=== PATIENT | male | born 1940 | race Caucasian/White ===

== ENCOUNTER 2017-11-30 23:03 | Inpatient (IN) ==
[2017-11-30] MEDS ORDERED: Ondansetron 4 MG/2 ML VIAL IVP ONE (23:16)
[2017-11-30] MEDS ORDERED: *HR* FentaNYL (PF) 100 MCG/2 ML VIAL IVP ONE (23:16)
[2017-11-30] MEDS ORDERED: 0.9 % Sodium Chloride 1,000 ML IVC ONE (23:16)
[2017-11-30 23:28] LABS: Bilirubin,Urine Negative (Negative); Blood,Urine Negative (Negative); Clarity,Urine Clear (Clear); Color,Urine Yellow (Yellow); Glucose,Urine (UA) >=1000 mg/dL (Normal); Ketones,Urine Negative (Negative); Leukocyte Esterase,Urine Negative (Negative); Nitrite,Urine Negative (Negative); Protein,Urine 100 mg/dL (Neg-Trace); Specific Gravity,Urine 1.019 (1.010-1.025); Urobilinogen,Urine Normal (Normal)
[2017-11-30 23:30] LABS: Bacteria,Urine None Seen per hpf (None-Few); Hyaline Casts,Urine None Seen per lpf (None-Few); RBC,Urine 0-3 per hpf (0-3); Squamous Epithelial Cell,Urine Moderate per lpf (None-Few); WBC,Urine 0-3 per hpf (0-3)
[2017-12-01 00:49] LABS: Basophils # 0.1 K/mcL (0.0-0.2); Basophils % 0.7 %; Eosinophils # 0.3 K/mcL (0.0-0.6); Eosinophils % 3.2 %; Hematocrit 45.1 % (37.5-50.1); Hemoglobin 14.6 g/dL (12.9-16.9); Immature Granulocytes % 0.5 % (0-4); Lymphocytes # 4.1 K/mcL (0.6-4.6); Lymphocytes % 38.2 %; Mean Corpuscular HGB Conc 32.4 g/dL (31.6-35.5); Mean Corpuscular Hemoglobin 28.2 pg (28.0-33.3); Mean Corpuscular Volume 87.2 fL (83.0-100.0); Mean Platelet Volume 10.1 fL (9.4-12.4); Monocytes % 9.1 %; Neutrophils # 5.2 K/mcL (1.6-8.9); Platelet Count 187 K/mcL (140-400); Red Blood Count 5.17 M/mcL (4.19-5.50); Red Cell Distribution Width 13.4 % (11.5-14.5); Segmented Neutrophils % 48.3 %
[2017-12-01 01:04] LABS: INR 1.1; Prothrombin Time 11.9 Seconds (9.4-12.1)
--- NOTE | 2017-12-01 01:04 | Emergency Department Note ---
Disposition Clinical Impression: Pancreatitis Qualifiers: Chronicity: acute Pancreatitis type: unspecified pancreatitis type Acute pancreatitis complication: no infection or necrosis Qualified Code(s): K85.90 - Acute pancreatitis without necrosis or infection, unspecified Disposition: Admitted As Inpatient Condition: Good Abdominal Pain HPI - General Chief Complaint: ED Abdominal Pain Stated Complaint: abd/back pain Time Seen by Provider: 11/30/17 23:16 Source: patient Mode of arrival: private vehicle Limitations: no limitations Nursing Notes Reviewed: Yes Vital Signs Reviewed: Yes - History of Present Illness HPI Narrative: 77-year-old male history of pancreatitis several times in the past presents to the ER with a chief complaint of abdominal pain. Patient reports pain around his epigastric area for the last 2 days. States that he feels like his prior pancreatitis. Reports pain goes into his back. So nauseated with a couple episodes of vomiting. No fevers or diarrhea. Reports normal bowel movements. He has a prior history of cholecystectomy, volvulus and appendectomy. No dysuria or hematuria. No other complaints. Pt Subjective Complaint: abdominal pain Onset (ago): day(s) Consistency: constant Location: epigastric Pain Severity: moderate Pain Scale: 7 Quality: stabbing Radiation: none Migration to: no migration Improves with: nothing Worsens with: nothing Context: history of similar episodes Associated symptoms: Reports: nausea, vomiting. Denies: diarrhea, fever, dysuria, hematuria Treatments prior to arrival: none - Related Data Home Medications Medication Instructions Recorded Confirmed Albuterol Sulfate [Albuterol 2 puff IH Q4HR PRN 09/30/15 08/12/16 Inhaler] Atenolol [Tenormin] 25 mg PO DAILY 09/30/15 08/12/16 Fluticasone Propionate [Flovent 1 puff IH BID 09/30/15 08/12/16 Hfa] GlipiZIDE XL (24 HR) [Glucotrol XL] 10 mg PO BID 09/30/15 08/12/16 Insulin DETEMIR [Levemir] 23 unit SQ BID 09/30/15 08/12/16 Lansoprazole [Prevacid] 30 mg PO BID 09/30/15 08/12/16 Losartan [Cozaar] 75 mg PO DAILY 09/30/15 08/12/16 Lovastatin [Mevacor] 80 mg PO DAILY 09/30/15 08/12/16 Tamsulosin [Flomax] 0.4 mg PO DAILY 09/30/15 08/12/16 Doxycycline 04/24/17 Previous Rx's Medication Instructions Recorded OxyCODONE/APAP 5/325 [Percocet 1 each PO Q6HR PRN #10 tablet 11/19/16 5/325] levoFLOXacin [Levaquin] 500 mg PO DAILY #10 tablet 04/24/17 predniSONE [PredniSONE] 0 mg PO DAILY #15 tablet 04/24/17 Allergies Allergy/AdvReac Type Severity Reaction Status Date / Time Erythromycin Base AdvReac Diarrhea Verified 11/30/17 23:11 lisinopril AdvReac Diarrhea Verified 11/30/17 23:11 meperidine [From Demerol] AdvReac Diarrhea Verified 11/30/17 23:11 metformin [From Glucophage] AdvReac Diarrhea Verified 11/30/17 23:11 teflan AdvReac Diarrhea Uncoded 04/24/17 16:29 zpack AdvReac Diarrhea Uncoded 04/24/17 16:29 All systems ED: reviewed and negative except as stated. Constitutional: Denies: fever Cardiovascular: Denies: chest pain Respiratory: Denies: dyspnea Gastrointestinal: Reports: abdominal pain, nausea, vomiting. Denies: diarrhea Genitourinary: Denies: dysuria, hematuria Abdominal Pain PMH - Past Medical History Medical history: Reports: hypertension, other Male Surgical History: Reports: appendectomy, cholecystectomy Psychiatric history: Reports: no psych history - Social History Smoking status: Never smoker Alcohol use: Reports: none Drug use: Reports: none Physical Exam - General Limitations: no limitations General appearance: alert, in no apparent distress - Head Head exam: atraumatic - Eye Eye exam: Present: normal appearance - ENT ENT exam: normal exam - Neck Neck exam: Present: normal inspection, full ROM - Chest Chest inspection: Present: normal inspection, symmetric chest wall rise - Respiratory Respiratory exam: Present: normal lung sounds bilaterally - Cardiovascular Cardiovascular exam: Present: regular rate, normal rhythm, normal heart sounds - Abdominal Exam Abdominal exam: Present: soft, tenderness (Moderate epigastric tenderness to palpation without distention or guarding.). Absent: distention, guarding - Extremities Exam Extremities exam: Present: normal inspection, full ROM - Expanded Upper Extremity Exam Shoulder exam: Present: normal inspection, full ROM Arm exam: Present: normal inspection, full ROM Elbow exam: Present: normal inspection, full ROM Forearm/Wrist exam: Present: normal inspection, full ROM Hand exam: Present: normal inspection, full ROM - Expanded Lower Extremity Exam Hip/Pelvis exam: Present: normal inspection, full ROM Upper leg exam: Present: normal inspection, full ROM Knee exam: Present: normal inspection, full ROM Lower leg exam: Present: normal inspection, full ROM Ankle exam: Present: normal inspection, full ROM Foot/toe exam: Present: normal inspection, full ROM - Skin Skin exam: Present: warm, dry Course Course Narrative: Patient seen and examined. We will get a CT scan of his abdomen and pelvis as well as labs and urinalysis. Patient given IV fluids, nausea meds and pain meds. - Reevaluation(s) Reevaluation #1: Discussed results of imaging labs with the patient. Reports his pain came back roughly 30 minutes after getting pain medication. We will order him another dose. He is agreeable with being admitted to the hospital. Vital Signs Temperature 97.4 F L 11/30/17 23:11 Pulse Rate 63 11/30/17 23:11 Respiratory Rate 20 11/30/17 23:11 Blood Pressure 203/80 11/30/17 23:11 O2 Sat by Pulse Oximetry 96 11/30/17 23:11 Temperature 97.4 F L 11/30/17 23:11 Pulse Rate 54 12/01/17 01:00 Respiratory Rate 16 12/01/17 02:52 Blood Pressure 201/88 12/01/17 02:52 O2 Sat by Pulse Oximetry 93 12/01/17 01:00 Oxygen Delivery Oxygen Delivery Room Air Abdominal Pain - [facility] Narrative Medical decision making narrative: 77-year-old male presents to the ER due to epigastric abdominal pain for 2 days. Prior history of pancreatitis of unknown etiology. His pain is focal epigastric here. CT scan with evidence of subtle acute pancreatitis of the pancreatic head. Lipase mildly elevated at 111. Noted to have stable chronic kidney disease. Patient given 2 doses of Advil, IV fluids and Zofran here. Admitted to the hospitalist service. - Lab Data Lab results reviewed: Yes I reviewed the patient's lab results. Result diagrams: 12/01/17 00:30 12/01/17 00:30 Lab Results 11/30/17 12/01/17 12/01/17 Range/Units 23:16 00:30 00:30 WBC 10.7 (4.3-11.1) K/mcL RBC 5.17 (4.19-5.50) M/mcL Hgb 14.6 (12.9-16.9) g/dL Hct 45.1 (37.5-50.1) % MCV 87.2 (83.0-100.0) fL MCH 28.2 (28.0-33.3) pg MCHC 32.4 (31.6-35.5) g/dL RDW 13.4 (11.5-14.5) % Plt Count 187 (140-400) K/mcL MPV 10.1 (9.4-12.4) fL Immature Gran % 0.5 (0-4) % Seg Neutrophils % 48.3 % Lymphocytes % 38.2 % Monocytes % 9.1 % Eosinophils % 3.2 % Basophils % 0.7 % Neutrophils # 5.2 (1.6-8.9) K/mcL Lymphocytes # 4.1 (0.6-4.6) K/mcL Monocytes # 1.0 (0.0-1.3) K/mcL Eosinophils # 0.3 (0.0-0.6) K/mcL Basophils # 0.1 (0.0-0.2) K/mcL PT (9.4-12.1) Seconds INR Sodium 135 L (136-145) mEq/L Potassium 4.6 (3.5-5.1) mEq/L Chloride 102 (98-107) mEq/L Carbon Dioxide 27 (23-29) mEq/L BUN 34 H (8-23) mg/dL Creatinine 2.19 H (0.70-1.30) mg/dL Est GFR ( Amer) 36 L (> 60) Est GFR (Non-Af Amer) 29 L (> 60) BUN/Creatinine Ratio 16 (6-26) Glucose 221 H (70-105) mg/dL Calculated Osmolality 294 (280-300) Calcium 9.2 (8.6-10.3) mg/dL Total Bilirubin 0.6 (0.3-1.0) mg/dL Direct Bilirubin 0.1 (0.0-0.2) mg/dL Indirect Bilirubin 0.5 (0.0-1.2) mg/dL AST 13 (13-39) Units/L ALT 14 (7-52) Units/L Alkaline Phosphatase 70 (34-104) Units/L Serum Total Protein 7.1 (6.4-8.9) g/dL Albumin 4.0 (3.5-5.7) g/dL Globulin 3.1 (2.4-3.5) g/dL Albumin/Globulin Ratio 1.3 (1.1-2.2) Lipase 111 H (11-82) Units/L Urine Color Yellow (Yellow) Urine Clarity Clear (Clear) Urine pH 6.0 (5.0-8.0) pH Units Ur Specific [place] 1.019 (1.010-1.025) Urine Protein 100 H (Neg-Trace) mg/dL Urine Glucose (UA) >=1000 H (Normal) mg/dL Urine Ketones Negative (Negative) mg/dL Urine Blood Negative (Negative) Urine Nitrite Negative (Negative) Urine Bilirubin Negative (Negative) Urine Urobilinogen Normal (Normal) mg/dL Ur Leukocyte Esterase Negative (Negative) Urine Microscopic RBC 0-3 (0-3) per hpf Urine Microscopic WBC 0-3 (0-3) per hpf Ur Squamous Epith Cells Moderate H (None-Few) per lpf Urine Bacteria None Seen (None-Few) per hpf Hyaline Casts None Seen (None-Few) per lpf Ur Culture Indicated? NO (NO) 12/01/17 Range/Units 00:30 WBC (4.3-11.1) K/mcL RBC (4.19-5.50) M/mcL Hgb (12.9-16.9) g/dL Hct (37.5-50.1) % MCV (83.0-100.0) fL MCH (28.0-33.3) pg MCHC (31.6-35.5) g/dL RDW (11.5-14.5) % Plt Count (140-400) K/mcL MPV (9.4-12.4) fL Immature Gran % (0-4) % Seg Neutrophils % % Lymphocytes % % Monocytes % % Eosinophils % % Basophils % % Neutrophils # (1.6-8.9) K/mcL Lymphocytes # (0.6-4.6) K/mcL Monocytes # (0.0-1.3) K/mcL Eosinophils # (0.0-0.6) K/mcL Basophils # (0.0-0.2) K/mcL PT 11.9 (9.4-12.1) Seconds INR 1.1 Sodium (136-145) mEq/L Potassium (3.5-5.1) mEq/L Chloride (98-107) mEq/L Carbon Dioxide (23-29) mEq/L BUN (8-23) mg/dL Creatinine (0.70-1.30) mg/dL Est GFR ( Amer) (> 60) Est GFR (Non-Af Amer) (> 60) BUN/Creatinine Ratio (6-26) Glucose (70-105) mg/dL Calculated Osmolality (280-300) Calcium (8.6-10.3) mg/dL Total Bilirubin (0.3-1.0) mg/dL Direct Bilirubin (0.0-0.2) mg/dL Indirect Bilirubin (0.0-1.2) mg/dL AST (13-39) Units/L ALT (7-52) Units/L Alkaline Phosphatase (34-104) Units/L Serum Total Protein (6.4-8.9) g/dL Albumin (3.5-5.7) g/dL Globulin (2.4-3.5) g/dL Albumin/Globulin Ratio (1.1-2.2) Lipase (11-82) Units/L Urine Color (Yellow) Urine Clarity (Clear) Urine pH (5.0-8.0) pH Units Ur Specific [place] (1.010-1.025) Urine Protein (Neg-Trace) mg/dL Urine Glucose (UA) (Normal) mg/dL Urine Ketones (Negative) mg/dL Urine Blood (Negative) Urine Nitrite (Negative) Urine Bilirubin (Negative) Urine Urobilinogen (Normal) mg/dL Ur Leukocyte Esterase (Negative) Urine Microscopic RBC (0-3) per hpf Urine Microscopic WBC (0-3) per hpf Ur Squamous Epith Cells (None-Few) per lpf Urine Bacteria (None-Few) per hpf Hyaline Casts (None-Few) per lpf Ur Culture Indicated? (NO) - Radiology Data Radiology results reviewed: Yes I reviewed the patient's radiology results. Abdomen/Pelvis CT 11/30/17 23:27 IMPRESSION: 1. Limited examination due to lack of IV contrast. 2. Subtle increase inflammation involving the pancreatic head may represent acute pancreatitis. 3. Otherwise no other acute findings. 4. No fluid collections. 5. Colonic diverticulosis, most in the descending sigmoid colon without evidence of diverticulitis. 6. Emphysema. 7. Prostatomegaly and nonspecific gallbladder wall thickening. D/ / Nito Gardner MD / Nito Gardner MD Interpreting Provider: Nito Gardner MD - EKG Data EKG attestation: Yes I reviewed and interpreted this EKG. EKG results narrative: EKG demonstrates sinus bradycardia with rate of 50 bpm. Left axis deviation. No long QRS duration of 137. Other vitals normal. Poor R wave progression. No gross ST elevations or depressions. No acute ischemic findings. No significant changes from previous EKG dated 09/06/16. S.B.A.R. - S.B.A.RSavi Situation: Demographics, MOA Background: Presenting Complaint, Relevant PMH, Meds, & Allergies Assessment: Course and respsone to treatment, Exam Concerns, Patient/Family Expectation, Pertinant Lab Results Recommendation: Barrier(s) to disposition, Recommendation based on pending studies, treatments, or consults S.B.A.R. Report Given to: Dr. Dejesus STrentAFlori Repor Time: 02:04 (Request EKG) Attestation Statement - Attestation Attestation: I, Zeb Velazquez MD, personally evaluated this patient and discussed their management with the resident physician. I reviewed the resident's note and agree with the documented findings, medical decision making, and plan of care. 77-year-old male presents to the emergency department with a complaint of epigastric abdominal pain for the past couple days. The pain radiates straight through to the back. Some nausea but no vomiting. Patient has a history of recurrent pancreatitis and states this feels the same. On examination patient is a well-developed well-nourished well-appearing elderly male in no acute distress. He is alert and oriented 3. There is no cyanosis or diaphoresis. Breath sounds are clear and equal bilaterally. Heart regular rate and rhythm. Abdomen is soft with normal bowel sounds. There is moderate midepigastric tenderness. Labs reviewed. The hospitalist, Dr. Dejesus, was consulted and accepted admission of the patient.
[2017-12-01 01:10] LABS: Albumin/Globulin Ratio 1.3 (1.1-2.2); Bilirubin,Direct 0.1 mg/dL (0.0-0.2); Bilirubin,Indirect 0.5 mg/dL (0.0-1.2); Bilirubin,Total 0.6 mg/dL (0.3-1.0); Calcium 9.2 mg/dL (8.6-10.3); Globulin 3.1 g/dL (2.4-3.5); Potassium 4.6 mEq/L (3.5-5.1); Total Protein 7.1 g/dL (6.4-8.9)
[2017-12-01] MEDS ORDERED: *HR* FentaNYL (PF) 100 MCG/2 ML VIAL IVP ONE (01:31)
[2017-12-01] MEDS ORDERED: *HR* HYDROcodone/Acet 7.5/325 mg TABLET PO ONE (02:29)
[2017-12-01] MEDS ORDERED: Dextrose Gel 15 GM/37.5 ML TUBE PO PRN ×4 (04:14→16:01)
[2017-12-01] MEDS ORDERED: D5% in Water 1,000 ML IVC PRN ×2 (04:14→16:01)
[2017-12-01] MEDS ORDERED: *HR* OxyCODONE Immed Rel 5 MG TABLET PO PRN (04:14)
[2017-12-01] MEDS ORDERED: Naloxone 0.4 MG/ML INJ IVP PRN (04:14)
[2017-12-01] MEDS ORDERED: *HR* Promethazine 25 MG/ML VIAL IVP PRN (04:14)
[2017-12-01] MEDS ORDERED: *HR* Dextrose 50 % in Water (Syg) 50 ML SYRINGE IVP PRN ×2 (04:14→16:01)
[2017-12-01] MEDS ORDERED: 0.9 % Sodium Chloride 1,000 ML IVC SCH ×2 (04:15→11:12)
--- NOTE | 2017-12-01 04:24 | Internal Med History&Physical ---
Date of Encounter: 12/01/17 Time of Encounter: 04:20 Assessment and Plan (1) Acute pancreatitis Current visit: No Status: Acute 1. Will keep npo, continue IVF, and treat with pain and nausea control. 2. Will order MRI of his abdomen/pancreas to evaluate CBD. 3. May need GI consult given his recurrent pancreatitis. Qualifiers: Pancreatitis type: idiopathic Qualified Code(s): K85.00 - Idiopathic acute pancreatitis without necrosis or infection (2) Acute kidney injury superimposed on chronic kidney disease Current visit: Yes Status: Acute 1. Will hydrate with IVF fluids and monitor renal functions. 2. Consult nephrology if worsening renal functions. (3) Diabetes mellitus Current visit: No Status: Chronic 1. Will continue SSI and add basal insulin later today. 2. Q6H glucose checks and SSI while npo. 3. Hold oral home meds. Qualifiers: Diabetes mellitus type: type 2 Diabetes mellitus complication status: with hyperglycemia Diabetes mellitus long term care phlebotomist insulin use: with fdc use Qualified Code(s): E11.65 - Type 2 diabetes mellitus with hyperglycemia; Z79.4 - longterm (current) use of insulin; Z79.4 - longterm (current) use of insulin ; Z79.4 - exterminator helper termite (current) use of insulin; Z79.4 - longterm (current) use of insulin (4) HTN (hypertension) Current visit: No Status: Chronic 1. Continue home meds as appropriate. 2. Monitor BP and adjust dosing as necessary. Qualifiers: Hypertension type: essential hypertension Qualified Code(s): I10 - Essential (primary) hypertension (5) DVT prophylaxis Current visit: Yes Status: Acute 1. Heparin SQ. Internal Medicine - H&P: HPI Chief complaint: abdominal pain Admitted From: Emergency Dept Plans for Post Hospital Care: Home History of present illness: Mr. Pickering is a 77 year old male who presents with a 2 to 3-day history of epigastric abdominal pain, nausea, and vomiting. He has had prior history of pancreatitis and was concerned that his symptoms were similar to his prior episodes of pancreatitis. Workup in the ER revealed slightly elevated lipase and CT scan findings concerning for pancreatitis. He was treated with some IV pain control and admitted to hospitalist. Upon my assessment of the patient, he still complains of significant epigastric pain. His nausea has subsided. He denies any diarrhea or fevers. Regarding his pancreatitis, he has had a prior cholecystectomy. He does not drink alcohol except for rare occasions -- roughly once or twice per year. His confirms the history. He denies any prior history of heavy alcohol consumption despite prior records documenting that. He states he would drink on occasions in the past, but more recently, he has had almost no alcohol intake due to his prior episodes of pancreatitis. He has not had any MRI or common bile duct imaging since his gallbladder surgery. Past Med Surg Social Fam HX - Past Medical History Attestation: Yes The following information was validated with the patient. Source: patient, old records reviewed, obtained from family Medical history: diabetes, hypertension Psychiatric history: no psych history - Past Surgical History Surgical History: appendectomy, cholecystectomy - Social History Smoking Status: Never smoker Smokeless Tobacco Status: No Alcohol use: none Drug use: none Current living situation: Home, With Family Activity Level: Independent ambulation, Very active - Family History Mother Hx Family Cancer: Yes (breast) - Additional Family History Additional family history: No FH pcnreatitis; + h/o gallstones Internal Medicine - H&P: Meds Albuterol Sulfate [Albuterol Inhaler] 2 puff IH Q4HR PRN 09/30/15 [History] Atenolol [Tenormin] 25 mg PO DAILY 09/30/15 [History] Fluticasone Propionate [Flovent Hfa] 1 puff IH BID 09/30/15 [History] GlipiZIDE XL (24 HR) [Glucotrol XL] 10 mg PO BID 09/30/15 [History] Insulin DETEMIR [Levemir] 23 unit SQ BID 09/30/15 [History] Lansoprazole [Prevacid] 30 mg PO BID 09/30/15 [History] Losartan [Cozaar] 75 mg PO DAILY 09/30/15 [History] Lovastatin [Mevacor] 80 mg PO DAILY 09/30/15 [History] Tamsulosin [Flomax] 0.4 mg PO DAILY 09/30/15 [History] OxyCODONE/APAP 5/325 [Percocet 5/325] 1 each PO Q6HR PRN #10 tablet 11/19/16 [Rx ] Doxycycline 04/24/17 [History] levoFLOXacin [Levaquin] 500 mg PO DAILY #10 tablet 04/24/17 [Rx] predniSONE [PredniSONE] 0 mg PO DAILY #15 tablet 04/24/17 [Rx] 3 Allergy/AdvReac Type Severity Reaction Status Date / Time Erythromycin Base AdvReac Diarrhea Verified 11/30/17 23:11 lisinopril AdvReac Diarrhea Verified 11/30/17 23:11 meperidine [From Demerol] AdvReac Diarrhea Verified 11/30/17 23:11 metformin [From Glucophage] AdvReac Diarrhea Verified 11/30/17 23:11 teflan AdvReac Diarrhea Uncoded 04/24/17 16:29 zpack AdvReac Diarrhea Uncoded 04/24/17 16:29 - Constitutional Constitutional: no chills, no fever(s) - EENT Eyes: no change in vision Ears: no ear pain, no tinnitus Nose, mouth and throat: no mouth pain, no nasal congestion, no sinus pressure, no sore throat - Cardiovascular Cardiovascular ROS IM: no chest pain, no dyspnea, no dyspnea on exertion, no edema, no palpitations - Respiratory Respiratory: no cough, no hemoptysis, no chest congestion, no excessive phlegm production - Gastrointestinal Gastrointestinal: abdominal pain, dyspepsia, nausea, vomiting, no diarrhea, no hematemesis, no hematochezia, no melena - Genitourinary Genitourinary ROS male: no dysuria, no flank pain - Musculoskeletal Musculoskeletal ROS IM: no arthralgias, no back pain - Integumentary Integumentary IM: no rash, no jaundice - Neurological Neurological ROS: no dizziness, no focal weakness, no frequent falls, no headache(s) - Psychiatric Psychiatric: no anxiety, no depression - Endocrine Endocrine IM: no polydipsia, no polyuria - Hematologic/Lymphatic Hematologic/Lymphatic: no easy bruising, no lymphadenopathy - Allergic/Immunologic Allergic/Immunologic: GI upset with certain foods, no wheezing - Constitutional Vitals: Temp Pulse Resp BP Pulse Ox 97.4 F L 54 16 201/88 93 11/30/17 23:11 12/01/17 01:00 12/01/17 02:52 12/01/17 02:52 12/01/17 01:00 General appearance: Present: cooperative, A&O X 3, pleasant, no acute distress, answers questions appropriately - Head Head exam: Present: atraumatic, normal inspection - Eye Eye exam: Present: EOMI, normal appearance, PERRL. Absent: scleral icterus Pupils: Present: normal accommodation - ENT ENT exam: Present: mucous membranes dry, normal exam, normal oropharynx - Neck Neck exam general surgery: Present: full ROM, supple. Absent: lymphadenopathy, tenderness, nuchal rigidity - Respiratory Respiratory exam: Present: CTAB. Absent: rales, respiratory distress, rhonchi, wheezes - Cardiovascular Cardiovascular exam: Present: RRR, +S1, +S2. Absent: diastolic murmur, systolic murmur - GI/Abdominal GI/Abdominal exam: Present: normal bowel sounds, soft. Absent: hepatomegaly, mass, splenomegaly - Extremities Exam Extremities exam: Present: full ROM, normal capillary refill, warm. Absent: calf tenderness, joint swelling, radial pulses palpable and symmetrical - Back Exam Back exam: Absent: CVA tenderness (L), CVA tenderness (R) - Neurological Exam Neurological exam: Present: alert, CN II-XII intact, oriented X3, no focal deficits - Psychiatric Psychiatric exam: Present: normal affect, normal mood - Skin Skin exam: Present: dry, warm. Absent: rash Internal Med - H&P Results - Labs CBC & Chem 7: 12/01/17 00:30 12/01/17 00:30 - Diagnostic Studies CT scan - abdomen Additional comments: Report reviewed: findings concerning for pancreatitis
[2017-12-01] MEDS: *HR* HYDROcodone/Acet 5/325 mg TABLET PO PRN ×3 (05:21→18:47)
[2017-12-01] MEDS: *HR* Heparin 5,000 UNIT/ML VIAL SQ SCH ×2 (05:24→18:35)
[2017-12-01] MEDS: Insulin LISPRO 300 UNITS/3 ML VIAL SQ SCH ×4 (05:31→20:20)
[2017-12-01] MEDS: Beclomethasone 80mcg MDI IH SCH ×2 (09:21→21:54)
--- NOTE | 2017-12-01 10:38 | Internal Med Progress Note ---
<Art Dyson - Last Filed: 12/01/17 11:34> Date of Encounter: 12/01/17 Time of Encounter: 08:30 - Assessment and plan (1) Acute pancreatitis Current Visit: No Status: Acute Assessment and plan: continue NPO, increased IVF to 175mls/hr, PPI, and pain management. MRI pending to evaluate CBD. Qualifiers: Pancreatitis type: idiopathic Qualified Code(s): K85.00 - Idiopathic acute pancreatitis without necrosis or infection (2) Acute kidney injury superimposed on chronic kidney disease Current Visit: Yes Status: Acute Assessment and plan: Continue with IVF and monitor with AM labs. Will consider nephrology consult if Kidney function does not improve or worsens. (3) Diabetes mellitus Current Visit: No Status: Chronic Assessment and plan: Continue with SSI and start basal insulin. Continue with NPO and hold home medication. Qualifiers: Diabetes mellitus type: type 2 Diabetes mellitus complication status: with hyperglycemia Diabetes mellitus assisted insulin use: with assisted use Qualified Code(s): E11.65 - Type 2 diabetes mellitus with hyperglycemia; Z79.4 - adjunct faculty for medical terminology (current) use of insulin; Z79.4 - adjunct faculty for medical terminology (current) use of insulin ; Z79.4 - [facility] (current) use of insulin; Z79.4 - [facility] (current) use of insulin (4) HTN (hypertension) Current Visit: No Status: Chronic Assessment and plan: Patient's blood pressure unstable. Continue with Hydralazine as needed for SBP> 160, Losartan 75 mg PO daily. Monitor BP. Qualifiers: Hypertension type: essential hypertension Qualified Code(s): I10 - Essential (primary) hypertension (5) DVT prophylaxis Current Visit: Yes Status: Acute Assessment and plan: Continue Heparin for DVT prophylaxis. - Time Spent With Patient 25 - 35 minutes - Constitutional Vitals: Temp Pulse Resp BP Pulse Ox 97.8 F 57 16 153/76 93 12/01/17 08:06 12/01/17 08:06 12/01/17 09:22 12/01/17 08:06 12/01/17 09:22 General appearance: Present: cooperative, A&O X 3, pleasant, no acute distress, answers questions appropriately - Head Head exam: Present: atraumatic, normocephalic - Eye Eye exam: Present: normal appearance - ENT ENT exam: Present: mucous membranes dry - Neck Neck exam general surgery: Present: full ROM, supple, trachea midline - Respiratory Respiratory exam: Present: CTAB. Absent: rales, rhonchi, wheezes - Cardiovascular Cardiovascular exam: Present: RRR, +S1, +S2. Absent: systolic murmur - GI/Abdominal GI/Abdominal exam: Present: distended, guarding, normal bowel sounds, rebound - Extremities Exam Extremities exam: Present: full ROM, warm, radial pulses palpable and symmetrical. Absent: pedal edema - Neurological Exam Neurological exam: Present: alert, CN II-XII intact, oriented X3, no focal deficits. Absent: facial droop, speech deficit - Psychiatric Psychiatric exam: Present: normal mood - Skin Skin exam: Present: intact, normal color Internal Medicine: Result - Labs CBC & Chem 7: 12/01/17 00:30 12/01/17 00:30 - ABG Interpretation ABG results: PT/INR, D-dimer PT 11.9 Seconds (9.4-12.1) 12/01/17 00:30 Consult Discharge Plan - Plan Referrals: Willie Aleman MD [Primary Care Provider] - <Tyson Matute - Last Filed: 12/01/17 13:26> Date of Encounter: 12/01/17 - Constitutional Vitals: Temp Pulse Resp BP Pulse Ox 97.8 F 57 16 153/76 93 12/01/17 08:06 12/01/17 08:06 12/01/17 09:22 12/01/17 08:06 12/01/17 09:22 Internal Medicine: Result - Labs CBC & Chem 7: 12/01/17 00:30 12/01/17 00:30 - ABG Interpretation ABG results: PT/INR, D-dimer PT 11.9 Seconds (9.4-12.1) 12/01/17 00:30 - Impressions Impressions Abdomen MRI 12/01/17 04:14 IMPRESSION: No evidence of biliary or pancreatic ductal dilatation. No choledocholithiasis. Status post cholecystectomy. Findings suggesting mild pancreatitis involving the head of the pancreas. Recommend correlation with amylase and lipase values. 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 No additional follow-up is required. Circumferential thickening of the distal esophagus. Recommend correlation with endoscopy. This may represent esophagitis. D/ / 12/01/2017 11:27:39 Sunny Glass MD / robert Interpreting Provider: Sunny Glass MD - Attending Attestation Acute recurrent pancreatitis, unknown trigger MRI of the abdomen showed:No evidence of biliary or pancreatic ductal dilatation. No choledocholithiasis. Status post cholecystectomy. Findings suggesting mild pancreatitis involving the head of the pancreas. 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 No additional follow-up is required. Circumferential thickening of the distal esophagus. Recommend correlation with endoscopy. This may represent esophagitis. I examined this patient and my medical decision-making was reviewed with the Resident Physician. I agree with the documented findings, disposition and treatment plan as described except to the extent set forth below.
[2017-12-01] MEDS: Pantoprazole 40 MG VIAL IVP SCH (14:00)
[2017-12-01] MEDS: 0.9 % Sodium Chloride 1,000 ML IVC SCH ×2 (18:36→22:30)
[2017-12-02] MEDS: *HR* HYDROcodone/Acet 5/325 mg TABLET PO PRN ×4 (04:21→21:38)
[2017-12-02] MEDS: *HR* Heparin 5,000 UNIT/ML VIAL SQ SCH ×2 (05:06→17:43)
[2017-12-02 05:36] LABS: Basophils % 0.5 %; Eosinophils # 0.2 K/mcL (0.0-0.6); Eosinophils % 2.5 %; Hematocrit 37.8 % (37.5-50.1); Immature Granulocytes % 0.3 % (0-4); Lymphocytes # 2.9 K/mcL (0.6-4.6); Lymphocytes % 38.1 %; Mean Corpuscular HGB Conc 32.5 g/dL (31.6-35.5); Mean Corpuscular Hemoglobin 28.4 pg (28.0-33.3); Mean Corpuscular Volume 87.3 fL (83.0-100.0); Mean Platelet Volume 10.2 fL (9.4-12.4); Monocytes # 0.7 K/mcL (0.0-1.3); Monocytes % 9.6 %; Neutrophils # 3.8 K/mcL (1.6-8.9); Platelet Count 140 K/mcL (140-400); Red Blood Count 4.33 M/mcL (4.19-5.50); Red Cell Distribution Width 13.6 % (11.5-14.5)
[2017-12-02 05:37] LABS: Hemoglobin 12.3 g/dL (12.9-16.9)
[2017-12-02 06:01] LABS: INR 1.1; Prothrombin Time 12.4 Seconds (9.4-12.1)
[2017-12-02 06:04] LABS: Activated Partial Thrombo Time 33.2 Seconds (26.0-36.0)
[2017-12-02 06:08] LABS: Albumin 3.4 g/dL (3.5-5.7); Albumin/Globulin Ratio 1.3 (1.1-2.2); Bilirubin,Total 0.8 mg/dL (0.3-1.0); Chol/HDL Ratio 4.8 (0-4.9); Globulin 2.6 g/dL (2.4-3.5); Magnesium 1.8 mg/dL (1.6-2.6); Potassium 4.2 mEq/L (3.5-5.1)
[2017-12-02] MEDS: Beclomethasone 80mcg MDI IH SCH ×2 (07:37→20:48)
--- NOTE | 2017-12-02 09:30 | Internal Med Progress Note ---
Date of Encounter: 12/02/17 Time of Encounter: 09:24 - Assessment and plan (1) Acute pancreatitis Current Visit: No Status: Acute Assessment and plan: Nothing by mouth Continue IV fluids, tonics, and pain management. MRI showed:No evidence of biliary or pancreatic ductal dilatation. No choledocholithiasis. Status post cholecystectomy. Findings suggesting mild pancreatitis involving the head of the pancreas. Recommend correlation with amylase and lipase values. 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 Circumferential thickening of the distal esophagus. Recommend correlation with endoscopy. This may represent esophagitis. Qualifiers: Pancreatitis type: idiopathic Qualified Code(s): K85.00 - Idiopathic acute pancreatitis without necrosis or infection (2) Esophagitis Current Visit: Yes Status: Acute Assessment and plan: Surgery consulted for possible EGD Protonix IV (3) Acute kidney injury superimposed on chronic kidney disease Current Visit: Yes Status: Acute Assessment and plan: Much improved. (4) Chronic kidney disease, stage 3 Current Visit: No Status: Chronic (5) Diabetes mellitus Current Visit: No Status: Chronic Assessment and plan: Continue with SSI and start basal insulin. hold home medication. Qualifiers: Diabetes mellitus type: type 2 Diabetes mellitus complication status: with hyperglycemia Diabetes mellitus [facility] insulin use: with inside sales assistant use Qualified Code(s): E11.65 - Type 2 diabetes mellitus with hyperglycemia; Z79.4 - [facility] (current) use of insulin; Z79.4 - cardiac nurse specialist (current) use of insulin ; Z79.4 - [facility] (current) use of insulin; Z79.4 - [facility] (current) use of insulin (6) HTN (hypertension) Current Visit: No Status: Chronic Assessment and plan: Patient's blood pressure unstable. Continue with Hydralazine as needed for SBP> 160, Losartan 75 mg PO daily. Monitor BP. Qualifiers: Hypertension type: essential hypertension Qualified Code(s): I10 - Essential (primary) hypertension - Subjective Interval history: The patient complains of severe epigastric pain, 8 out of 10 intensity, nausea, was not able to tolerate his breakfast. Denies any chest pain or short of breath, no fevers, no diarrhea or dysuria - Constitutional Vitals: Temp Pulse Resp BP Pulse Ox 98.3 F 62 16 159/76 94 12/02/17 06:54 12/02/17 06:54 12/02/17 07:39 12/02/17 06:54 12/02/17 07:39 General appearance: Present: cooperative, A&O X 3, pleasant, no acute distress, answers questions appropriately - Head Head exam: Present: atraumatic, normocephalic - Eye Eye exam: Present: PERRL, conjuntiva pink, sclera anicteric Pupils: Present: PERRL - Neck Neck exam general surgery: Present: supple, trachea midline. Absent: lymphadenopathy - Respiratory Respiratory exam: Present: CTAB. Absent: accessory muscle use, rales, rhonchi, wheezes - Cardiovascular Cardiovascular exam: Present: RRR, +S1, +S2. Absent: diastolic murmur, gallop, rubs, systolic murmur - GI/Abdominal GI/Abdominal exam: Present: normal bowel sounds, soft, tenderness (Epigastric tenderness), no peritoneal signs. Absent: distended - Extremities Exam Extremities exam: Present: warm, radial pulses palpable and symmetrical. Absent : calf tenderness, cyanotic, pedal edema - Neurological Exam Neurological exam: Present: CN II-XII intact, oriented X3, no focal deficits. Absent: pronater drift, facial droop, speech deficit - Skin Skin exam: Present: dry, intact Internal Medicine: Result - Labs CBC & Chem 7: 12/02/17 05:17 12/02/17 05:17 Labs: Short CBC 12/02/17 Range/Units 05:17 WBC 7.7 (4.3-11.1) K/mcL Hgb 12.3 L D (12.9-16.9) g/dL Hct 37.8 (37.5-50.1) % Plt Count 140 (140-400) K/mcL Neutrophils # 3.8 (1.6-8.9) K/mcL BMP 12/02/17 05:17 Sodium 139 Potassium 4.2 Chloride 110 H Carbon Dioxide 23 BUN 21 Creatinine 1.62 H Glucose 151 H Calcium 8.0 L Liver Function 12/02/17 Range/Units 05:17 Total Bilirubin 0.8 (0.3-1.0) mg/dL AST 12 L (13-39) Units/L ALT 12 (7-52) Units/L Alkaline Phosphatase 48 (34-104) Units/L Albumin 3.4 L (3.5-5.7) g/dL - ABG Interpretation ABG results: PT/INR, D-dimer PT 12.4 Seconds (9.4-12.1) H 12/02/17 05:17 - Impressions Impressions Abdomen MRI 12/01/17 04:14 IMPRESSION: No evidence of biliary or pancreatic ductal dilatation. No choledocholithiasis. Status post cholecystectomy. Findings suggesting mild pancreatitis involving the head of the pancreas. Recommend correlation with amylase and lipase values. 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 No additional follow-up is required. Circumferential thickening of the distal esophagus. Recommend correlation with endoscopy. This may represent esophagitis. D/ / 12/01/2017 11:27:39 Sunny Glass MD / robert Interpreting Provider: Sunny Glass MD Consult Discharge Plan - Plan Referrals: Willie Aleman MD [Primary Care Provider] -
[2017-12-02] MEDS: Insulin LISPRO 300 UNITS/3 ML VIAL SQ SCH ×4 (09:39→21:38)
[2017-12-02] MEDS: Pantoprazole 40 MG VIAL IVP SCH ×2 (09:39→21:37)
[2017-12-02] MEDS: 0.9 % Sodium Chloride 1,000 ML IVC SCH ×2 (09:45→17:43)
--- NOTE | 2017-12-02 13:17 | Electrocardiograph Report ---
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
--- NOTE | 2017-12-02 15:59 | General Surgery Consult Note ---
Date of Encounter: 12/02/17 Time of Encounter: 15:45 Assessment and Plan (1) Esophagitis Current Visit: Yes Status: Acute Distal esophagitis. The thickening of the esophagus visible on MRCP needs to be investigated with EGD and possible dilatation or biopsy. We will schedule this for the morning. History of Present Illness Consult date: 12/02/17 Reason for consult: other (Abnormal MRI imaging of the distal esophagus) History of present illness: The patient was recently admitted to the hospital for evaluation of epigastric pain. He has a personal history of chronic relapsing pancreatitis. An MRCP was ordered and as an incidental finding thickening of the distal esophagus was noted. The patient states that he had upper endoscopy with distal esophageal dilatation in the past. His last upper endoscopy was perhaps 5 years ago. He denies any recurrent dysphagia. 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 He continues to have reflux symptoms. The abnormal MRCP visualization of the distal esophagus recommended upper endoscopy for clinical correlation. I discussed these findings with the patient and I have recommended upper endoscopy with possible esophageal dilatation. Past Med Surg Social Fam HX - Past Medical History Medical history: hypertension, other Psychiatric history: no psych history - Past Surgical History Surgical History: appendectomy, cholecystectomy - Social History Smoking Status: Never smoker Smokeless Tobacco Status: No Alcohol use: none Drug use: none - Family History Grandmother Hx Family Endocrine Disorder: Yes (Diabetes) Mother Hx Family Cancer: Yes (breast) Medications and Allergies Albuterol Sulfate [Albuterol Inhaler] 2 puff IH Q4HR PRN 09/30/15 [History] Atenolol [Tenormin] 25 mg PO DAILY 09/30/15 [History] Fluticasone Propionate [Flovent Hfa] 1 puff IH BID 09/30/15 [History] GlipiZIDE XL (24 HR) [Glucotrol XL] 10 mg PO BID 09/30/15 [History] Insulin DETEMIR [Levemir] 23 unit SQ BID 09/30/15 [History] Lansoprazole [Prevacid] 30 mg PO BID 09/30/15 [History] Losartan [Cozaar] 75 mg PO DAILY 09/30/15 [History] Lovastatin [Mevacor] 80 mg PO DAILY 09/30/15 [History] Tamsulosin [Flomax] 0.4 mg PO DAILY 09/30/15 [History] 3 Allergy/AdvReac Type Severity Reaction Status Date / Time Erythromycin Base AdvReac Diarrhea Verified 11/30/17 23:11 lisinopril AdvReac Diarrhea Verified 11/30/17 23:11 meperidine [From Demerol] AdvReac Diarrhea Verified 11/30/17 23:11 metformin [From Glucophage] AdvReac Diarrhea Verified 11/30/17 23:11 teflan AdvReac Diarrhea Uncoded 04/24/17 16:29 zpack AdvReac Diarrhea Uncoded 04/24/17 16:29 Review of Systems All systems PM: A 10-system review of systems was performed and is negative for pertinent findings except as documented above in the HPI. General Surgery Exam Initial Vital Signs Temp Pulse Resp BP Pulse Ox 97.4 F L 63 20 203/80 96 11/30/17 23:11 11/30/17 23:11 11/30/17 23:11 11/30/17 23:11 11/30/17 23:11 - General physical appearance well developed, well nourished, no distress - Respiratory normal expansion, normal respiratory effort, clear to percussion, clear to auscultation - Cardiovascular Cardiovascular exam: Present: RRR, no murmurs/rubs/gallops - Abdomen Abdomen general surgery: Present: bowel sounds present, soft, non tender - Integumentary Integumentary general surgery: Present: warm and dry, other (No evidence of jaundice) - Neurologic Present: CN 2-12 grossly intact, normal coordination, normal sensation - Psychiatric Psychiatric general surgery: Present: appropriate, oriented to person, oriented to place, oriented to time, speech is normal, memory intact Exam Initial Vital Signs Temp Pulse Resp BP Pulse Ox 97.4 F L 63 20 203/80 96 11/30/17 23:11 11/30/17 23:11 11/30/17 23:11 11/30/17 23:11 11/30/17 23:11 Results - Labs 12/02/17 05:17 12/02/17 05:17 Abnormal lab results Hgb 12.3 g/dL (12.9-16.9) L D 12/02/17 05:17 PT 12.4 Seconds (9.4-12.1) H 12/02/17 05:17 Chloride 110 mEq/L (98-107) H 12/02/17 05:17 Creatinine 1.62 mg/dL (0.70-1.30) H 12/02/17 05:17 Est GFR ( Amer) 50 (> 60) L 12/02/17 05:17 Est GFR (Non-Af Amer) 42 (> 60) L 12/02/17 05:17 Glucose 151 mg/dL (70-105) H 12/02/17 05:17 POC Glucose 143 (58-89) H 12/02/17 06:50 Calcium 8.0 mg/dL (8.6-10.3) L 12/02/17 05:17 AST 12 Units/L (13-39) L 12/02/17 05:17 Serum Total Protein 6.0 g/dL (6.4-8.9) L 12/02/17 05:17 Albumin 3.4 g/dL (3.5-5.7) L 12/02/17 05:17 Triglycerides 183 mg/dL (< 150) H 12/02/17 05:17 VLDL Cholesterol, Calc 37 mg/dL (< 31) H 12/02/17 05:17 HDL Cholesterol 25 mg/dL (40-59) L 12/02/17 05:17 Urine Protein 100 mg/dL (Neg-Trace) H 11/30/17 23:16 Urine Glucose (UA) >=1000 mg/dL (Normal) H 11/30/17 23:16 Ur Squamous Epith Cells Moderate per lpf (None-Few) H 11/30/17 23:16 Diabetes panel 12/02/17 Range/Units 05:17 Sodium 139 (136-145) mEq/L Potassium 4.2 (3.5-5.1) mEq/L Chloride 110 H (98-107) mEq/L Carbon Dioxide 23 (23-29) mEq/L BUN 21 (8-23) mg/dL Creatinine 1.62 H (0.70-1.30) mg/dL Glucose 151 H (70-105) mg/dL Calcium 8.0 L (8.6-10.3) mg/dL AST 12 L (13-39) Units/L ALT 12 (7-52) Units/L Alkaline Phosphatase 48 (34-104) Units/L Albumin 3.4 L (3.5-5.7) g/dL Triglycerides 183 H (< 150) mg/dL HDL Cholesterol 25 L (40-59) mg/dL Calcium panel 12/02/17 Range/Units 05:17 Calcium 8.0 L (8.6-10.3) mg/dL Albumin 3.4 L (3.5-5.7) g/dL Pituitary panel 12/02/17 Range/Units 05:17 Sodium 139 (136-145) mEq/L Potassium 4.2 (3.5-5.1) mEq/L Chloride 110 H (98-107) mEq/L Carbon Dioxide 23 (23-29) mEq/L BUN 21 (8-23) mg/dL Creatinine 1.62 H (0.70-1.30) mg/dL Glucose 151 H (70-105) mg/dL Calcium 8.0 L (8.6-10.3) mg/dL Adrenal panel 12/02/17 Range/Units 05:17 Sodium 139 (136-145) mEq/L Potassium 4.2 (3.5-5.1) mEq/L Chloride 110 H (98-107) mEq/L Carbon Dioxide 23 (23-29) mEq/L BUN 21 (8-23) mg/dL Creatinine 1.62 H (0.70-1.30) mg/dL Glucose 151 H (70-105) mg/dL Calcium 8.0 L (8.6-10.3) mg/dL Total Bilirubin 0.8 (0.3-1.0) mg/dL AST 12 L (13-39) Units/L ALT 12 (7-52) Units/L Alkaline Phosphatase 48 (34-104) Units/L Albumin 3.4 L (3.5-5.7) g/dL All other labs normal. Consult Discharge Plan - Plan Referrals: Willie Aleman MD [Primary Care Provider] -
[2017-12-03] MEDS: 0.9 % Sodium Chloride 1,000 ML IVC SCH ×2 (00:30→08:47)
[2017-12-03] MEDS: *HR* HYDROcodone/Acet 5/325 mg TABLET PO PRN ×3 (02:11→22:56)
[2017-12-03] MEDS: *HR* Heparin 5,000 UNIT/ML VIAL SQ SCH ×2 (05:11→17:18)
[2017-12-03 06:22] LABS: Calcium 8.2 mg/dL (8.6-10.3); Potassium 4.1 mEq/L (3.5-5.1)
[2017-12-03] MEDS ORDERED: *HR* Midazolam HCl 5 MG/5 ML VIAL IVP ONE (07:25)
[2017-12-03] MEDS ORDERED: *HR* FentaNYL (PF) 100 MCG/2 ML VIAL ONE (07:26)
[2017-12-03] MEDS ORDERED: *HR* Midazolam HCl 2 MG/2 ML VIAL IVP ONE (07:59)
[2017-12-03] MEDS ORDERED: *HR* FentaNYL (PF) 100 MCG/2 ML VIAL IVP ONE (07:59)
[2017-12-03] MEDS ORDERED: Tetracaine/Benzocaine/Butamben 200MG/SPRAY (100SPY/BOT) MM ONE (07:59)
[2017-12-03] MEDS ORDERED: Simethicone 40 MG/0.6 ML MLS IR ONE (07:59)
--- NOTE | 2017-12-03 07:59 | Internal Med Progress Note ---
<Art Dyson - Last Filed: 12/03/17 11:12> Date of Encounter: 12/03/17 Time of Encounter: 08:30 - Assessment and plan (1) Acute pancreatitis Current Visit: Yes Status: Acute Assessment and plan: Improved. MRI demonstrates no evidence of biliary ductal dilation. No choledocholithiasis. Status post cholecystectomy. findings suggesting mild pancreatitis involving the head of the pancreas. Patient reports improvement of abdominal pain, currently 5 out of 10. Plan to start on low-fat diet. Discontinue IV fluids. Continue with pain management. Qualifiers: Pancreatitis type: idiopathic Qualified Code(s): K85.00 - Idiopathic acute pancreatitis without necrosis or infection (2) Esophagitis Current Visit: Yes Status: Acute Assessment and plan: MRI demonstrated circumferential thickening of the distal esophagus. EGD performed by Dr. Navjot riley demonstrated normal esophagus , normal duodenum, diffuse moderate inflammation in the gastric body and gastric antrum. Pending biopsy for H pylori testing. Continue with IV protonix. Plan for discharge tomorrow (3) Acute kidney injury superimposed on chronic kidney disease Current Visit: No Status: Acute Assessment and plan: Improved and back to baseline (4) Diabetes mellitus Current Visit: No Status: Chronic Assessment and plan: Continue SSI Qualifiers: Diabetes mellitus type: type 2 Diabetes mellitus complication status: with hyperglycemia Diabetes mellitus marine oil terminal superintendent insulin use: with marine oil terminal superintendent use Qualified Code(s): E11.65 - Type 2 diabetes mellitus with hyperglycemia; Z79.4 - truck terminal manager (current) use of insulin; Z79.4 - senior living (current) use of insulin ; Z79.4 - senior living (current) use of insulin; Z79.4 - senior living (current) use of insulin (5) HTN (hypertension) Current Visit: No Status: Chronic Assessment and plan: Patient did not receive his morning dose of losartan. Had multiple episodes of systolic blood pressure 190. Hydralazine 10 mg administered. Continue close monitoring of blood pressure. Continue with losartan and hydralazine as needed Qualifiers: Hypertension type: essential hypertension Qualified Code(s): I10 - Essential (primary) hypertension (6) DVT prophylaxis Current Visit: Yes Status: Acute Assessment and plan: Continue with heparin 5000 units for DVT prophylaxis (8) Anxiety Current Visit: Yes Status: Acute Assessment and plan: Patient experienced episode of Post-surgical agitation. Xanax 0.5 mg as needed for anxiety. - Time Spent With Patient Greater than 35 minutes - Subjective Interval history: 77M with PMHx diabetes and acute pancreatitis presents with 2-3 days history of epigastric abdominal pain, nausea, and vomiting. CT demonstrated distal esophageal wall thickening, and the patient underwent an EGD this a.m. which demonstrated diffuse moderate inflammation in the gastric body and gastric antrum. Biopsies are currently pending for H. pylori testing. The patient reports that he tolerated the procedure well. He reports resolution of abdominal pain and nausea. Denies fevers, chills, nausea, vomiting, diarrhea, abdominal pain. The patient did not receive his losartan this a.m. and had a episode of systolic blood pressure greater than 190. He also had an episode of agitation post- EGD with shortness of breath and recheck blood pressure demonstrated 200/93. Received hydralazine and losartan. No further complaints. - Constitutional Vitals: Temp Pulse Resp BP Pulse Ox 97.6 F 62 15 190/79 93 12/03/17 07:43 12/03/17 07:43 12/03/17 07:43 12/03/17 07:43 12/03/17 07:43 General appearance: Present: cooperative, A&O X 3, pleasant, no acute distress, answers questions appropriately - Head Head exam: Present: atraumatic, normocephalic - Eye Eye exam: Present: normal appearance - Neck Neck exam general surgery: Present: full ROM, supple, trachea midline - Respiratory Respiratory exam: Present: CTAB. Absent: accessory muscle use, rales, rhonchi, wheezes - Cardiovascular Cardiovascular exam: Present: RRR, +S1, +S2 - GI/Abdominal GI/Abdominal exam: Present: normal bowel sounds, soft, no peritoneal signs. Absent: guarding, tenderness - Extremities Exam Extremities exam: Present: full ROM, normal inspection, warm, radial pulses palpable and symmetrical - Neurological Exam Neurological exam: Present: alert, CN II-XII intact, oriented X3. Absent: facial droop, speech deficit - Psychiatric Psychiatric exam: Present: normal mood - Skin Skin exam: Present: intact, normal color, warm Internal Medicine: Result - Labs CBC & Chem 7: 12/02/17 05:17 12/03/17 05:45 Labs: BMP 12/03/17 05:45 Sodium 139 Potassium 4.1 Chloride 111 H Carbon Dioxide 22 L BUN 16 Creatinine 1.53 H Glucose 142 H Calcium 8.2 L - ABG Interpretation ABG results: PT/INR, D-dimer PT 12.4 Seconds (9.4-12.1) H 12/02/17 05:17 Consult Discharge Plan - Plan Referrals: Willie Aleman MD [Primary Care Provider] - <Tyson Matute H - Last Filed: 12/03/17 12:46> Date of Encounter: 12/03/17 - Assessment and plan (1) Acute pancreatitis Current Visit: Yes Status: Acute Qualifiers: Pancreatitis type: idiopathic Qualified Code(s): K85.00 - Idiopathic acute pancreatitis without necrosis or infection (2) Esophagitis Current Visit: Yes Status: Acute (3) Acute kidney injury superimposed on chronic kidney disease Current Visit: No Status: Acute (4) Chronic kidney disease, stage 3 Current Visit: No Status: Chronic (5) Diabetes mellitus Current Visit: No Status: Chronic Qualifiers: Diabetes mellitus type: type 2 Diabetes mellitus complication status: with hyperglycemia Diabetes mellitus group home insulin use: with marine oil terminal superintendent use Qualified Code(s): E11.65 - Type 2 diabetes mellitus with hyperglycemia; Z79.4 - senior living (current) use of insulin; Z79.4 - senior living (current) use of insulin ; Z79.4 - truck terminal manager (current) use of insulin; Z79.4 - truck terminal manager (current) use of insulin (6) HTN (hypertension) Current Visit: No Status: Chronic Qualifiers: Hypertension type: essential hypertension Qualified Code(s): I10 - Essential (primary) hypertension - Constitutional Vitals: Temp Pulse Resp BP Pulse Ox 97.6 F 58 16 179/77 91 12/03/17 07:43 12/03/17 08:09 12/03/17 08:09 12/03/17 08:09 12/03/17 08:09 Internal Medicine: Result - Labs CBC & Chem 7: 12/02/17 05:17 12/03/17 05:45 Labs: BMP 12/03/17 05:45 Sodium 139 Potassium 4.1 Chloride 111 H Carbon Dioxide 22 L BUN 16 Creatinine 1.53 H Glucose 142 H Calcium 8.2 L - ABG Interpretation ABG results: PT/INR, D-dimer PT 12.4 Seconds (9.4-12.1) H 12/02/17 05:17 - Attending Attestation The patient feels anxious about being discharged. We will discharge in the morning if stable Resume diet low fat and low lactose I examined this patient and my medical decision-making was reviewed with the Resident Physician. I agree with the documented findings, disposition and treatment plan as described except to the extent set forth below.
[2017-12-03] MEDS ORDERED: 0.9 % Sodium Chloride 500 ML IVC SCH (08:00)
--- NOTE | 2017-12-03 08:00 | Pre-Sedation Evaluation ---
Pre-sedation evaluation - Pre-sedation checklist Date of procedure: 12/03/17 Procedure: EGD Recent Vitals: Last Vital Signs Temp 97.6 F 12/03/17 07:43 Pulse 62 12/03/17 07:43 Resp 15 12/03/17 07:43 BP 190/79 12/03/17 07:43 Pulse Ox 93 12/03/17 07:43 H&P (including ROS) documented in medical record: Yes Previous reaction to sedatives/anesthetics: No Dietary Status: NPO after Midnight Dentition: dentures removed Possible difficult airway: No ASA Classification *see protocol: CLASS III-Severe systemic disease Plan of Care: Pt appropriate candidate for procedure/moderate/conscious sedation , Risks/benefits of procedure/sedation discussed w/ patient/family
--- NOTE | 2017-12-03 09:13 | Discharge Summary ---
<KarisArt - Last Filed: 12/05/17 08:40> Date of Encounter: 12/05/17 Time of Encounter: 08:30 - Discharge Diagnosis (1) Acute pancreatitis Priority: Primary Status: Acute Qualifiers: Pancreatitis type: idiopathic Qualified Code(s): K85.00 - Idiopathic acute pancreatitis without necrosis or infection (2) Esophagitis Priority: Primary Status: Acute (3) Hypertensive crisis without congestive heart failure Priority: Secondary Status: Acute (4) Asthma exacerbation Priority: Primary Status: Acute Qualifiers: Qualified Code(s): J45.901 - Unspecified asthma with (acute) exacerbation (5) Acute kidney injury superimposed on chronic kidney disease Priority: Secondary Status: Acute (6) Diabetes mellitus Priority: Secondary Status: Chronic Qualifiers: Diabetes mellitus type: type 2 Diabetes mellitus complication status: with hyperglycemia Diabetes mellitus manager long term care insulin use: with [facility] use Qualified Code(s): E11.65 - Type 2 diabetes mellitus with hyperglycemia; Z79.4 - long-term (current) use of insulin; Z79.4 - manager long term care (current) use of insulin ; Z79.4 - long-term (current) use of insulin; Z79.4 - manager long term care (current) use of insulin (7) HTN (hypertension) Priority: Secondary Status: Chronic Qualifiers: Hypertension type: essential hypertension Qualified Code(s): I10 - Essential (primary) hypertension (8) Chronic kidney disease, stage 3 Priority: Secondary Status: Chronic - Discharge Medications Prescriptions: hydrALAZINE [HydrALAZINE] 25 mg PO Q8HR 30 Days #90 tablet Atenolol [Tenormin] 25 mg PO DAILY #30 tablet Losartan [Cozaar] 75 mg PO DAILY #30 tablet PredniSONE [Deltasone] 40 mg PO DAILY 5 Days #5 tablet Home Medications: Albuterol Sulfate [Albuterol Inhaler] 2 puff IH Q4HR PRN 09/30/15 [History] Atenolol [Tenormin] 25 mg PO DAILY 09/30/15 [History] Fluticasone Propionate [Flovent Hfa] 1 puff IH BID 09/30/15 [History] GlipiZIDE XL (24 HR) [Glucotrol XL] 10 mg PO BID 09/30/15 [History] Insulin DETEMIR [Levemir] 23 unit SQ BID 09/30/15 [History] Lansoprazole [Prevacid] 30 mg PO BID 09/30/15 [History] Losartan [Cozaar] 75 mg PO DAILY 09/30/15 [History] Lovastatin [Mevacor] 80 mg PO DAILY 09/30/15 [History] Tamsulosin [Flomax] 0.4 mg PO DAILY 09/30/15 [History] Atenolol [Tenormin] 25 mg PO DAILY #30 tablet 12/05/17 [Rx] Losartan [Cozaar] 75 mg PO DAILY #30 tablet 12/05/17 [Rx] PredniSONE [Deltasone] 40 mg PO DAILY 5 Days #5 tablet 12/05/17 [Rx] hydrALAZINE [HydrALAZINE] 25 mg PO Q8HR 30 Days #90 tablet 12/05/17 [Rx] Allergies/Adverse Reactions: 3 Allergy/AdvReac Type Severity Reaction Status Date / Time Erythromycin Base AdvReac Diarrhea Verified 11/30/17 23:11 lisinopril AdvReac Diarrhea Verified 11/30/17 23:11 meperidine [From Demerol] AdvReac Diarrhea Verified 11/30/17 23:11 metformin [From Glucophage] AdvReac Diarrhea Verified 11/30/17 23:11 teflan AdvReac Diarrhea Uncoded 04/24/17 16:29 zpack AdvReac Diarrhea Uncoded 04/24/17 16:29 Date of admission: 12/02/17 15:09 Primary care physician: Willie Aleman MD Discharging clinician: Art Dyson Anticipated date of discharge: 12/05/17 - Patient Status Disposition: Home, Self-Care Condition: Good Functional capacity at discharge: independent ambulation Overall status at discharge: patient is back to baseline - Discharge Instructions Follow Up With: Shruthi Mckeon MD [Partnered Physician] - 12/09/17 8:45 am Rose Barnett MD [Partnered Physician] - 12/15/17 12:30 pm Willie Aleman MD [Primary Care Provider] - 12/09/17 1:30 pm Additional Instructions: Follow-up with PCP, Dr. Sanches (his lockmaker) and pulmonology follow-up in the next week. - Diet and Activity Diet: advance to your usual diet Hospital course: Mr. Pickering is a 77 year old male with PMHx of diabetes and acute pancreatitis presents with 2-3 days history of epigastric abdominal pain, nausea, vomiting. He was admitted for acute pancreatitis on 12/01/17 with lipase = 111. Patient's symptoms improved with bowel rest, IVF, and pain management. Abdominal CT demonstrated limited examination due to lack of IV contrast, and subtle increased inflammation involving the pancreatic head was noted which might represent acute pancreatitis. MRI of the abdomen demonstrated no evidence of biliary or pancreatic ductal dilation. No choledocholithiasis, status post cholecystectomy. Circumferential thickening of the distal esophagus was also noted on MRI and EGD was performed on 12/03/17. EGD indicates esophagus was normal, duodenum was normal, and there was diffuse moderate inflammation characterized by congestion and edema with biopsy negative for H. pylori. Patient experienced episodes of hypertensive crisis on 12/03/17 due to missed dose of hypertension medications. Hydralazine 25 mg every 6 hours was added, and blood pressure is controlled. He experienced dypsneic episodes on 12/04/17 improved with Duoneb and prednisone 40 mg. Today, patient reports improvement of abdominal pain and resolution of shortness of breath. Denies fever, chills, nausea, vomiting, diarrhea. Does not have further complaints. Plan is to have follow-up with PCP and Dr. Sanches (lockmaker) and power saw mechanic for evaluation of asthma exacerbation. - Time Spent with Patient Total time spent providing and/or coordinating discharge services: Greater than 30 minutes - Constitutional Vitals: Temp Pulse Resp BP Pulse Ox 97.6 F 58 16 179/77 91 12/03/17 07:43 12/03/17 08:09 12/03/17 08:09 12/03/17 08:09 12/03/17 08:09 General appearance: Present: cooperative, A&O X 3, pleasant, no acute distress, answers questions appropriately - Head Head exam: Present: atraumatic, normocephalic - Eye Eye exam: Present: normal appearance - ENT ENT exam: Present: normal exam - Neck Neck exam general surgery: Present: full ROM, normal inspection, supple, trachea midline - Respiratory Respiratory exam: Present: CTAB. Absent: rales, rhonchi, wheezes - Cardiovascular Cardiovascular exam: Present: RRR, +S1, +S2. Absent: systolic murmur - GI/Abdominal GI/Abdominal exam: Present: normal bowel sounds, soft, no peritoneal signs. Absent: guarding, tenderness - Extremities Exam Extremities exam: Present: full ROM, normal inspection, warm, radial pulses palpable and symmetrical. Absent: tenderness - Neurological Exam Neurological exam: Present: alert, CN II-XII intact, oriented X3, no focal deficits. Absent: facial droop, speech deficit - Psychiatric Psychiatric exam: Present: normal mood - Skin Skin exam: Present: intact, normal color, warm <Tyson Matute H - Last Filed: 12/05/17 10:34> Date of Encounter: 12/05/17 - Discharge Diagnosis (1) Acute pancreatitis Status: Acute Qualifiers: Pancreatitis type: idiopathic Qualified Code(s): K85.00 - Idiopathic acute pancreatitis without necrosis or infection (2) Esophagitis Status: Acute (3) Acute kidney injury superimposed on chronic kidney disease Status: Acute (4) Chronic kidney disease, stage 3 Status: Chronic (5) Diabetes mellitus Status: Chronic Qualifiers: Diabetes mellitus type: type 2 Diabetes mellitus complication status: with hyperglycemia Diabetes mellitus manager long term care insulin use: with manager long term care use Qualified Code(s): E11.65 - Type 2 diabetes mellitus with hyperglycemia; Z79.4 - long-term (current) use of insulin; Z79.4 - manager long term care (current) use of insulin ; Z79.4 - manager long term care (current) use of insulin; Z79.4 - manager long term care (current) use of insulin (6) HTN (hypertension) Status: Chronic Qualifiers: Hypertension type: essential hypertension Qualified Code(s): I10 - Essential (primary) hypertension Date of admission: 12/02/17 15:09 Primary care physician: Willie Aleman MD Hospital course: Mr. Pickering is a 77 year old male - Time Spent with Patient Total time spent providing and/or coordinating discharge services: - Constitutional Vitals: Temp Pulse Resp BP Pulse Ox 98.0 F 61 14 128/66 95 12/05/17 07:12 12/05/17 07:12 12/05/17 07:12 12/05/17 07:12 12/05/17 07:12 - Attending Attestation Acute pancreatitis and acute asthma attack Continue prednisone for 5 more days and stop, is to follow-up with the pulmonary service within the next 1 or 2 weeks Time spent on this discharge 40 minutes I examined this patient and my medical decision-making was reviewed with the Resident Physician. I agree with the documented findings, disposition and treatment plan as described except to the extent set forth below.
[2017-12-03] MEDS: Pantoprazole 40 MG VIAL IVP SCH ×2 (09:53→21:02)
[2017-12-03] MEDS ORDERED: ALPRAZolam 0.5 MG TABLET PO PRN (11:10)
[2017-12-03] MEDS: Beclomethasone 80mcg MDI IH SCH ×2 (12:07→22:41)
[2017-12-03] MEDS: Insulin LISPRO 300 UNITS/3 ML VIAL SQ SCH ×3 (17:17→21:04)
[2017-12-04] MEDS ORDERED: cloNIDine HCl 0.1 MG TABLET PO ONE ×2 (02:29→21:07)
[2017-12-04] MEDS: *HR* Heparin 5,000 UNIT/ML VIAL SQ SCH ×2 (06:00→17:15)
[2017-12-04] MEDS: Insulin LISPRO 300 UNITS/3 ML VIAL SQ SCH ×4 (07:55→20:51)
[2017-12-04] MEDS: Beclomethasone 80mcg MDI IH SCH ×2 (08:16→22:28)
[2017-12-04] MEDS: Saliva Stimulant 100ml BOTTLE PO PRN ×3 (09:03→20:55)
[2017-12-04] MEDS: Pantoprazole 40 MG VIAL IVP SCH (09:05)
--- NOTE | 2017-12-04 09:39 | Internal Med Progress Note ---
<Art Dyson - Last Filed: 12/04/17 09:20> Date of Encounter: 12/04/17 Time of Encounter: 09:00 - Assessment and plan (1) Asthma Current Visit: Yes Status: Chronic Assessment and plan: Patient had multiple episodes of shortness of breath. He has a history of asthma. Chest x-ray demonstrated pulmonary vessel congestion. Started on prednisone 40 mg by mouth daily, DuoNeb. Continue to monitor vital signs. Plan for discharge tomorrow if symptoms improve. Qualifiers: Asthma severity: mild intermittent Asthma complication type: uncomplicated Qualified Code(s): J45.20 - Mild intermittent asthma, uncomplicated (2) Acute pancreatitis Current Visit: Yes Status: Acute Assessment and plan: Improved. MRI demonstrates no evidence of biliary ductal dilation. No choledocholithiasis. Status post cholecystectomy. Findings suggesting mild pancreatitis involving the head of the pancreas. Patient reports improvement of abdominal pain. He is tolerating low-fat diet. Continue current plan and pain management. plan for discharge tomorrow Qualifiers: Pancreatitis type: idiopathic Qualified Code(s): K85.00 - Idiopathic acute pancreatitis without necrosis or infection (3) Esophagitis Current Visit: Yes Status: Acute Assessment and plan: MRI demonstrated circumferential thickening of the distal esophagus. EGD performed by Dr. Navjot riley demonstrated normal esophagus , normal duodenum, diffuse moderate inflammation in the gastric body and gastric antrum. H. pylori is negative. Plan for discharge tomorrow (4) Acute kidney injury superimposed on chronic kidney disease Current Visit: No Status: Acute Assessment and plan: Improved and back to baseline (5) Diabetes mellitus Current Visit: No Status: Chronic Assessment and plan: Continue SSI Qualifiers: Diabetes mellitus type: type 2 Diabetes mellitus complication status: with hyperglycemia Diabetes mellitus [facility] insulin use: with intermediate school teacher use Qualified Code(s): E11.65 - Type 2 diabetes mellitus with hyperglycemia; Z79.4 - intermediate manager (current) use of insulin; Z79.4 - detention (current) use of insulin ; Z79.4 - detention (current) use of insulin; Z79.4 - detention (current) use of insulin (6) HTN (hypertension) Current Visit: No Status: Chronic Assessment and plan: Patient had multiple episodes of blood Hydralazine by mouth 25 mg every 6 hours added to patient's regimen. Continue with home medications losartan and metoprolol. Qualifiers: Hypertension type: essential hypertension Qualified Code(s): I10 - Essential (primary) hypertension (7) DVT prophylaxis Current Visit: Yes Status: Acute Assessment and plan: Continue with heparin 5000 units for DVT prophylaxis (8) Chronic kidney disease, stage 3 Current Visit: No Status: Chronic Assessment and plan: Dr. Wall. Follow-up with outpatient. - Time Spent With Patient Greater than 35 minutes - Subjective Interval history: 77M with PMHx diabetes and acute pancreatitis presents with 2-3 days history of epigastric abdominal pain, nausea, and vomiting. Denies fevers, chills, nausea , vomiting, worsening diarrhea. Reports further improvement of abdominal pain. He had multiple episodes of elevated blood pressure yesterday; highest 201/ 74. He received hydralazine and clonidine. His blood pressure at home is systolic 150. Patient also reports dry mouth. He denies headaches, blurry visions, palpitations, SOB, cough. Denies feeling anxious. He is uncomfortable being discharged today due to episodes of hypertension followed by shortness of breath. He is tolerating his low fat diet. Has no further complaints. - Constitutional Vitals: Temp Pulse Resp BP Pulse Ox 98 F 70 16 157/71 94 12/04/17 07:10 12/04/17 07:10 12/04/17 08:18 12/04/17 07:10 12/04/17 08:18 General appearance: Present: cooperative, A&O X 3, pleasant, no acute distress, answers questions appropriately - Head Head exam: Present: atraumatic, normocephalic - Eye Eye exam: Present: PERRL, conjuntiva pink, sclera anicteric Pupils: Present: PERRL - Neck Neck exam general surgery: Present: supple, trachea midline. Absent: lymphadenopathy - Respiratory Respiratory exam: Present: CTAB. Absent: accessory muscle use, rales, rhonchi, wheezes - Cardiovascular Cardiovascular exam: Present: RRR, +S1, +S2. Absent: diastolic murmur, gallop, rubs, systolic murmur - GI/Abdominal GI/Abdominal exam: Present: distended, normal bowel sounds, soft, no peritoneal signs. Absent: tenderness - Extremities Exam Extremities exam: Present: warm, radial pulses palpable and symmetrical. Absent : calf tenderness, cyanotic, pedal edema - Neurological Exam Neurological exam: Present: CN II-XII intact, oriented X3, no focal deficits. Absent: pronater drift, facial droop, speech deficit - Skin Skin exam: Present: dry, intact Internal Medicine: Result - Labs CBC & Chem 7: 12/02/17 05:17 12/03/17 05:45 - ABG Interpretation ABG results: PT/INR, D-dimer PT 12.4 Seconds (9.4-12.1) H 12/02/17 05:17 - Impressions Impressions Chest X-Ray 12/04/17 07:34 IMPRESSION: Pulmonary vascular congestion. D/ / Yoav Lozano MD / Yoav Lozano MD Interpreting Provider: Yoav Lozano MD Consult Discharge Plan - Plan Referrals: Willie Aleman MD [Primary Care Provider] - <Tyson Matute H - Last Filed: 12/04/17 13:40> Date of Encounter: 12/04/17 - Assessment and plan (1) Acute pancreatitis Current Visit: Yes Status: Acute Qualifiers: Pancreatitis type: idiopathic Qualified Code(s): K85.00 - Idiopathic acute pancreatitis without necrosis or infection (2) Esophagitis Current Visit: Yes Status: Acute (3) Acute kidney injury superimposed on chronic kidney disease Current Visit: No Status: Acute (4) Chronic kidney disease, stage 3 Current Visit: No Status: Chronic (5) Diabetes mellitus Current Visit: No Status: Chronic Qualifiers: Diabetes mellitus type: type 2 Diabetes mellitus complication status: with hyperglycemia Diabetes mellitus fci insulin use: with intermediate school teacher use Qualified Code(s): E11.65 - Type 2 diabetes mellitus with hyperglycemia; Z79.4 - intermediate manager (current) use of insulin; Z79.4 - detention (current) use of insulin ; Z79.4 - intermediate manager (current) use of insulin; Z79.4 - detention (current) use of insulin (6) HTN (hypertension) Current Visit: No Status: Chronic Qualifiers: Hypertension type: essential hypertension Qualified Code(s): I10 - Essential (primary) hypertension - Constitutional Vitals: Temp Pulse Resp BP Pulse Ox 97.7 F 58 16 132/68 93 12/04/17 12:09 02/04/18 12:09 12/04/17 12:09 12/04/17 12:09 12/04/17 12:09 Internal Medicine: Result - Labs CBC & Chem 7: 12/02/17 05:17 12/03/17 05:45 - ABG Interpretation ABG results: PT/INR, D-dimer PT 12.4 Seconds (9.4-12.1) H 12/02/17 05:17 - Impressions Impressions Chest X-Ray 12/04/17 07:34 IMPRESSION: Pulmonary vascular congestion. D/ / Yoav Lozano MD / Yoav Lozano MD Interpreting Provider: Yoav Lozano MD - Attending Attestation Possible acute asthma Continue prednisone Chest x-ray showed also vascular congestion Start Lasix 20 mg IV twice a day for possible volume overload Esophagitis ruled out Discontinue Protonix IV and continue only omeprazole Acute pancreatitis, much improved, consider discharging tomorrow Accelerated hypertension Start oral hydralazine and hydralazine IV as needed I examined this patient and my medical decision-making was reviewed with the Resident Physician. I agree with the documented findings, disposition and treatment plan as described except to the extent set forth below.
[2017-12-04] MEDS: Ipratropium/Albuterol Neb 3 ML IH SCH ×3 (10:20→22:30)
[2017-12-04] MEDS: hydrALAZINE 25 MG TABLET PO SCH ×4 (12:04→22:55)
[2017-12-04] MEDS: predniSONE 20 MG TABLET PO SCH (12:04)
[2017-12-04] MEDS: Insulin DETEMIR 100 UNIT/ML X5UNITS SQ SCH ×2 (12:07→20:46)
[2017-12-04] MEDS: Furosemide 20 MG/2 ML VIAL IVP SCH ×2 (14:52→16:10)
[2017-12-05] MEDS: Ipratropium/Albuterol Neb 3 ML IH SCH ×2 (04:04→07:33)
[2017-12-05] MEDS: *HR* Heparin 5,000 UNIT/ML VIAL SQ SCH (05:45)
[2017-12-05] MEDS: hydrALAZINE 25 MG TABLET PO SCH (05:46)
[2017-12-05 07:14] VITALS: BP 128/66
[2017-12-05] MEDS: Beclomethasone 80mcg MDI IH SCH (07:33)
[2017-12-05] MEDS ORDERED: *HR* GlipiZIDE XL (24 HR) 10 MG TABLET PO SCH (09:00)
[2017-12-05] MEDS: Furosemide 20 MG/2 ML VIAL IVP SCH (09:11)
[2017-12-05] MEDS: Insulin LISPRO 300 UNITS/3 ML VIAL SQ SCH (09:11)
[2017-12-05] MEDS: Insulin DETEMIR 100 UNIT/ML X5UNITS SQ SCH ×3 (09:12→10:56)
[2017-12-05] MEDS: predniSONE 20 MG TABLET PO SCH (09:12)
== END 2017-12-05 11:52 | disposition home or self-care (01) | DRG 439 ==
LOC: 3ANU 23:03 → EMEROO 23:03 → 3ANU 12-01 02:57
PROVIDERS: ADMIT Internal Medicine; ATTEND Internal Medicine
PROC: ENDOEBX (2017-12-03 08:00)

== ENCOUNTER 2019-01-09 18:11 | Inpatient (IN) ==
[2019-01-09] MEDS ORDERED: 0.9 % Sodium Chloride 1,000 ML IVC ONE (19:46)
[2019-01-09] MEDS ORDERED: *HR* Morphine 2 MG/ML SYRINGE IVP ONE ×2 (19:48→21:11)
--- NOTE | 2019-01-09 19:55 | Emergency Department Note ---
Disposition Clinical Impression: Pancreatitis Qualifiers: Chronicity: acute Pancreatitis type: unspecified pancreatitis type Acute pancreatitis complication: unspecified Qualified Code(s): K85.90 - Acute pancreatitis without necrosis or infection, unspecified Disposition: Admitted As Inpatient Condition: Fair Time of Disposition: 22:37 Abdominal Pain HPI - General Chief Complaint: ED Abdominal Pain Stated Complaint: abd pain Time Seen by Provider: 01/09/19 19:33 Nursing Notes Reviewed: Yes Vital Signs Reviewed: Yes - History of Present Illness HPI Narrative: 78-year-old male presents from home with bedside for evaluation of epigastric abdominal pain. Onset 2 days ago. Described as constant smoldering illness with intermittent sharp stabbing that radiates directly posterior to his back. Identical to him as prior episodes of pancreatitis. He said 3 episodes of previous pancreatitis. Cause is unknown to him. He is status post cholecystectomy, well-managed hyperlipidemia, diabetes, no history of EtOH. Patient is not having any nausea or vomiting with this episode. PMH: Diabetes mellitus, chronic kidney disease, history of pancreatitis, hypertension ROS: Positive: As above Negative: Fever, chills, nausea, vomiting, chest pains, palpitations, diarrhea, constipation, dysuria Pain Scale: 7 - Related Data Home Medications Medication Instructions Recorded Confirmed RX: Albuterol Sulfate [Albuterol 2 puff IH Q4HR PRN 09/30/15 12/01/17 Inhaler] RX: Fluticasone Propionate 1 puff IH BID 09/30/15 12/01/17 [Flovent Hfa] RX: GlipiZIDE XL (24 HR) 10 mg PO BID 09/30/15 12/01/17 [Glucotrol XL] RX: Insulin DETEMIR [Levemir] 23 unit SQ BID 09/30/15 12/01/17 RX: Lansoprazole [Prevacid] 30 mg PO BID 09/30/15 01/10/19 RX: Lovastatin [Mevacor] 80 mg PO DAILY 09/30/15 12/01/17 RX: Tamsulosin [Flomax] 0.8 mg PO QPM 09/30/15 01/10/19 RX: Losartan [Cozaar] 50 mg PO BID 01/10/19 01/10/19 Previous Rx's Medication Instructions Recorded RX: Atenolol [Tenormin] 25 mg PO DAILY #30 tablet 12/05/17 Allergies Allergy/AdvReac Type Severity Reaction Status Date / Time Erythromycin Base AdvReac Diarrhea Verified 11/30/17 23:11 lisinopril AdvReac Diarrhea Verified 11/30/17 23:11 meperidine [From Demerol] AdvReac Diarrhea Verified 11/30/17 23:11 metformin [From Glucophage] AdvReac Diarrhea Verified 11/30/17 23:11 teflan AdvReac Diarrhea Uncoded 04/24/17 16:29 zpack AdvReac Diarrhea Uncoded 04/24/17 16:29 All systems ED: reviewed and negative except as stated. Review of Systems: As Per HPI Abdominal Pain PMH - Past Medical History Medical history: Reports: hypertension, other Male Surgical History: Reports: appendectomy, cholecystectomy Psychiatric history: Reports: no psych history - Social History Smoking status: Never smoker Alcohol use: Reports: none Drug use: Reports: none Physical Exam Vital Signs Reviewed General: Patient is alert, oriented, and in mild distress from his abdominal pain.. Head: atraumatic, normocephalic Eye: normal appearance, PERRL, EOMI, no scleral icterus, no conjunctival injection ENT: mucous membranes moist, normal external ear exam Neck: normal inspection, trachea midline, full ROM Chest: normal inspection, symmetric chest rise Respiratory: Good respiratory effort. Bilateral breath sounds are clear without wheezing, crackles, or rhonchi. Cardiovascular: Regular rate and rhythm. No clicks, rubs, gallops, or murmors. Normal heart sounds. Abdomen: Bowel sounds present normoactive. Abdomen is soft, nondistended, mild to moderate epigastric tenderness. No guarding or rebound. Musculoskeletal: Spontaneously moving all extremities. Skin: warm, dry, intact. Neuro: GCS 15. No focal neurologic deficits observed. Psych: Patient's affect is appropriate for situation. Course Course Narrative: Hold on CT with IV contrast given patient's history of chronic kidney disease. May consider advanced imaging pending completion of lab work. Serum hematology shows mild leukocytosis. Serum chemistry shows elevated creatinine. Patient does have history of chronic kidney disease. Baseline levels are fluctuating; today's creatinine is consistent with this is toward baseline levels. Lipase slightly elevated at 99. Given patient's history of prior pancreatitis this could reflect chronic pancreatitis making lipase unreliable marker. Urinalysis is not concerning for UTI. CT abdomen pelvis shows pancreatitis with no perihepatic fluid collections. I discussed the above with the admitting hospitalist, Dr. Morales, who agrees to accept the patient for continued evaluation or monitoring of pancreatitis. Abdomen/Pelvis CT 01/09/19 21:24 IMPRESSION: 1. Quite significant peripancreatic head and uncinate process infiltration most compatible with acute pancreatitis in the appropriate clinical setting. No peripancreatic fluid collections. D/ / Juan Manuel Bernardo MD / Juan Manuel Bernardo MD Interpreting Provider: Juan Manuel Bernardo MD Vital Signs Temperature 97.2 F L 01/09/19 18:27 Pulse Rate 61 01/09/19 18:27 Respiratory Rate 14 01/09/19 18:27 Blood Pressure 209/89 01/09/19 18:27 O2 Sat by Pulse Oximetry 96 01/09/19 18:27 Temperature 97.2 F L 01/09/19 18:27 Pulse Rate 59 01/09/19 21:21 Respiratory Rate 16 01/09/19 21:21 Blood Pressure 162/96 01/09/19 21:21 O2 Sat by Pulse Oximetry 97 01/09/19 21:21 Oxygen Delivery Oxygen Delivery Room Air Abdominal Pain - Lab Data Result diagrams: 01/10/19 02:56 01/10/19 02:56 Lab Results 01/09/19 01/09/19 01/09/19 Range/Units 19:42 19:42 19:42 WBC 12.1 H (4.3-11.1) K/mcL RBC 5.09 (4.19-5.50) M/mcL Hgb 14.6 (12.9-16.9) g/dL Hct 44.4 (37.5-50.1) % MCV 87.2 (83.0-100.0) fL MCH 28.7 (28.0-33.3) pg MCHC 32.9 (31.6-35.5) g/dL RDW 13.6 (11.5-14.5) % Plt Count 179 (140-400) K/mcL MPV 10.0 (9.4-12.4) fL Immature Gran % 0.5 (0-4) % Seg Neutrophils % 57.2 % Lymphocytes % 30.0 % Monocytes % 9.3 % Eosinophils % 2.5 % Basophils % 0.5 % Neutrophils # 6.9 (1.6-8.9) K/mcL Lymphocytes # 3.6 (0.6-4.6) K/mcL Monocytes # 1.1 (0.0-1.3) K/mcL Eosinophils # 0.3 (0.0-0.6) K/mcL Basophils # 0.1 (0.0-0.2) K/mcL Sodium 137 (136-145) mEq/L Potassium 4.2 (3.5-5.1) mEq/L Chloride 103 (98-107) mEq/L Carbon Dioxide 25 (23-29) mEq/L BUN 36 H (8-23) mg/dL Creatinine 1.84 H (0.70-1.30) mg/dL Est GFR ( Amer) 43 L (> 60) Est GFR (Non-Af Amer) 36 L (> 60) BUN/Creatinine Ratio 20 (6-26) Glucose 154 H (70-105) mg/dL Calculated Osmolality 295 (280-300) Lactic Acid (0.5-2.2) mmol/L Calcium 9.7 (8.6-10.3) mg/dL Total Bilirubin 0.8 (0.3-1.0) mg/dL Direct Bilirubin 0.1 (0.0-0.2) mg/dL Indirect Bilirubin 0.7 (0.0-1.2) mg/dL AST 12 L (13-39) Units/L ALT 11 (7-52) Units/L Alkaline Phosphatase 72 (34-104) Units/L Serum Total Protein 7.7 (6.4-8.9) g/dL Albumin 4.4 (3.5-5.7) g/dL Globulin 3.3 (2.4-3.5) g/dL Albumin/Globulin Ratio 1.3 (1.1-2.2) Lipase 99 H (11-82) Units/L Urine Color (Yellow) Urine Clarity (Clear) Urine pH (5.0-8.0) pH Units Ur Specific [place] (1.010-1.025) Urine Protein (Neg-Trace) mg/dL Urine Glucose (UA) (Normal) mg/dL Urine Ketones (Negative) mg/dL Urine Blood (Negative) Urine Nitrite (Negative) Urine Bilirubin (Negative) Urine Urobilinogen (Normal) mg/dL Ur Leukocyte Esterase (Negative) Urine Microscopic RBC (0-3) per hpf Urine Microscopic WBC (0-3) per hpf Ur Squamous Epith Cells (None-Few) per lpf Urine Bacteria (None-Few) per hpf Hyaline Casts (None-Few) per lpf Ur Culture Indicated? (NO) 01/09/19 01/09/19 Range/Units 19:42 20:42 WBC (4.3-11.1) K/mcL RBC (4.19-5.50) M/mcL Hgb (12.9-16.9) g/dL Hct (37.5-50.1) % MCV (83.0-100.0) fL MCH (28.0-33.3) pg MCHC (31.6-35.5) g/dL RDW (11.5-14.5) % Plt Count (140-400) K/mcL MPV (9.4-12.4) fL Immature Gran % (0-4) % Seg Neutrophils % % Lymphocytes % % Monocytes % % Eosinophils % % Basophils % % Neutrophils # (1.6-8.9) K/mcL Lymphocytes # (0.6-4.6) K/mcL Monocytes # (0.0-1.3) K/mcL Eosinophils # (0.0-0.6) K/mcL Basophils # (0.0-0.2) K/mcL Sodium (136-145) mEq/L Potassium (3.5-5.1) mEq/L Chloride (98-107) mEq/L Carbon Dioxide (23-29) mEq/L BUN (8-23) mg/dL Creatinine (0.70-1.30) mg/dL Est GFR ( Amer) (> 60) Est GFR (Non-Af Amer) (> 60) BUN/Creatinine Ratio (6-26) Glucose (70-105) mg/dL Calculated Osmolality (280-300) Lactic Acid 0.6 (0.5-2.2) mmol/L Calcium (8.6-10.3) mg/dL Total Bilirubin (0.3-1.0) mg/dL Direct Bilirubin (0.0-0.2) mg/dL Indirect Bilirubin (0.0-1.2) mg/dL AST (13-39) Units/L ALT (7-52) Units/L Alkaline Phosphatase (34-104) Units/L Serum Total Protein (6.4-8.9) g/dL Albumin (3.5-5.7) g/dL Globulin (2.4-3.5) g/dL Albumin/Globulin Ratio (1.1-2.2) Lipase (11-82) Units/L Urine Color Yellow (Yellow) Urine Clarity Clear (Clear) Urine pH 5.5 (5.0-8.0) pH Units Ur Specific [place] 1.021 (1.010-1.025) Urine Protein 100 H (Neg-Trace) mg/dL Urine Glucose (UA) 100 H (Normal) mg/dL Urine Ketones Negative (Negative) mg/dL Urine Blood Negative (Negative) Urine Nitrite Negative (Negative) Urine Bilirubin Negative (Negative) Urine Urobilinogen Normal (Normal) mg/dL Ur Leukocyte Esterase Negative (Negative) Urine Microscopic RBC 0-3 (0-3) per hpf Urine Microscopic WBC 0-3 (0-3) per hpf Ur Squamous Epith Cells None Seen (None-Few) per lpf Urine Bacteria None Seen (None-Few) per hpf Hyaline Casts None Seen (None-Few) per lpf Ur Culture Indicated? NO (NO) Attestation Statement - Attestation Attestation: Resident Attestation: I examined this patient and my medical decision making was reviewed with the Resident Physician. I agree with the documented findings, disposition and treatment plan as described except to the extent set forth below. We independently had [id number] contact with the patient. Patient presenting for epigastric abdominal pain. Feels similar to previous pancreatitis. The significant decrease in appetite. Tenderness to the epigastric region without guarding or rebound. Further blood work and workup for possible pancreatitis initiated. Blood work and imaging consistent with pancreatitis. Patient will be admitted for further symptom control as he has failed outpatient management. Saw PCP earlier in the week.
[2019-01-09 20:05] LABS: Basophils # 0.1 K/mcL (0.0-0.2); Basophils % 0.5 %; Eosinophils # 0.3 K/mcL (0.0-0.6); Eosinophils % 2.5 %; Hematocrit 44.4 % (37.5-50.1); Hemoglobin 14.6 g/dL (12.9-16.9); Immature Granulocytes % 0.5 % (0-4); Lymphocytes # 3.6 K/mcL (0.6-4.6); Mean Corpuscular HGB Conc 32.9 g/dL (31.6-35.5); Mean Corpuscular Hemoglobin 28.7 pg (28.0-33.3); Mean Corpuscular Volume 87.2 fL (83.0-100.0); Monocytes # 1.1 K/mcL (0.0-1.3); Monocytes % 9.3 %; Neutrophils # 6.9 K/mcL (1.6-8.9); Platelet Count 179 K/mcL (140-400); Red Blood Count 5.09 M/mcL (4.19-5.50); Red Cell Distribution Width 13.6 % (11.5-14.5); Segmented Neutrophils % 57.2 %
[2019-01-09 20:27] LABS: Albumin 4.4 g/dL (3.5-5.7); Albumin/Globulin Ratio 1.3 (1.1-2.2); Bilirubin,Direct 0.1 mg/dL (0.0-0.2); Bilirubin,Indirect 0.7 mg/dL (0.0-1.2); Bilirubin,Total 0.8 mg/dL (0.3-1.0); Calcium 9.7 mg/dL (8.6-10.3); Globulin 3.3 g/dL (2.4-3.5); Potassium 4.2 mEq/L (3.5-5.1); Total Protein 7.7 g/dL (6.4-8.9)
[2019-01-09 20:53] LABS: Bilirubin,Urine Negative (Negative); Blood,Urine Negative (Negative); Clarity,Urine Clear (Clear); Color,Urine Yellow (Yellow); Glucose,Urine (UA) 100 mg/dL (Normal); Ketones,Urine Negative (Negative); Leukocyte Esterase,Urine Negative (Negative); Nitrite,Urine Negative (Negative); PH,Urine 5.5 pH Units (5.0-8.0); Protein,Urine 100 mg/dL (Neg-Trace); Specific Gravity,Urine 1.021 (1.010-1.025); Urobilinogen,Urine Normal (Normal)
[2019-01-09 20:58] LABS: Bacteria,Urine None Seen per hpf (None-Few); Hyaline Casts,Urine None Seen per lpf (None-Few); RBC,Urine 0-3 per hpf (0-3); Squamous Epithelial Cell,Urine None Seen per lpf (None-Few); WBC,Urine 0-3 per hpf (0-3)
[2019-01-10] MEDS ORDERED: *HR* Dextrose 50 % in Water (Syg) 50 ML SYRINGE IVP PRN (00:43)
[2019-01-10] MEDS ORDERED: D5% in Water 1,000 ML IVC PRN (00:43)
[2019-01-10] MEDS ORDERED: Dextrose Gel 15 GM/37.5 ML TUBE PO PRN ×2 (00:43)
[2019-01-10] MEDS ORDERED: Ondansetron 4 MG/2 ML VIAL IVP PRN (00:43)
[2019-01-10] MEDS ORDERED: Naloxone 0.4 MG/ML INJ IVP PRN (00:43)
[2019-01-10] MEDS ORDERED: *HR* Promethazine 25 MG/ML VIAL IVP PRN (00:43)
[2019-01-10] MEDS ORDERED: Acetaminophen 325 MG TABLET PO PRN (00:43)
[2019-01-10] MEDS ORDERED: Ipratropium/Albuterol Neb 3 ML IH PRN (00:53)
[2019-01-10] MEDS: *HR* FentaNYL (PF) 100 MCG/2 ML VIAL IVP PRN ×5 (01:34→23:28)
[2019-01-10] MEDS: 0.9 % Sodium Chloride 1,000 ML IVC SCH ×2 (01:34→11:51)
--- NOTE | 2019-01-10 02:16 | Internal Med History&Physical ---
Date of Encounter: 01/09/19 Time of Encounter: 23:30 Internal Medicine - H&P: HPI Chief complaint: abdominal pain, N/V Admitted From: Emergency Dept Plans for Post Hospital Care: Home History of present illness: Mr. Iniguez is a 78 year old male who presents with a 1 day history of epigastric abdominal pain, nausea, vomiting, excessive belching, and pain radiating to his mid back. Symptoms are similar to prior episodes of pancreatitis. He therefore came to ER for evaluation. Workup in the ER did confirm pancreatitis, and he was therefore admitted to hospitalist service. Upon my assessment of the patient, he is having mild to moderate pain. He denies any fevers, chills, or night sweats. Has had 4 prior episodes of pancreatitis in the past. He does not drink alcohol. He has prior cholecystectomy. He is diabetic, however. He was last hospitalized about a year ago, and MRI of the abdomen/pancreas then did not show any common bile duct or pancreatic duct obstruction/pathology. Regarding his diabetes, he and his both state that his glucose is suboptimally controlled. He denies any recent or new medication changes over the last few weeks or months. Past Med Surg Social Fam HX - Past Medical History Attestation: Yes The following information was validated with the patient. Source: patient, old records reviewed, obtained from family Medical history: diabetes, hypertension Additional medical history: pancreatitis Psychiatric history: no psych history - Past Surgical History Surgical History: appendectomy, cholecystectomy Additional surgical history: SBO -- lysis of adhesions - Social History Smoking Status: Never smoker Smokeless Tobacco Status: No Alcohol use: none Drug use: none Current living situation: Home, With Family Activity Level: Independent ambulation Recent Out of Country Travel Within the Last 8 Weeks: No - Family History Grandmother Hx Family Endocrine Disorder: Yes (Diabetes) Mother Hx Family Cancer: Yes (breast) Internal Medicine - H&P: Meds Albuterol Sulfate [Albuterol Inhaler] 2 puff IH Q4HR PRN 09/30/15 [History] Fluticasone Propionate [Flovent Hfa] 1 puff IH BID 09/30/15 [History] GlipiZIDE XL (24 HR) [Glucotrol XL] 10 mg PO BID 09/30/15 [History] Insulin DETEMIR [Levemir] 23 unit SQ BID 09/30/15 [History] Lansoprazole [Prevacid] 30 mg PO BID 09/30/15 [History] Lovastatin [Mevacor] 80 mg PO DAILY 09/30/15 [History] Tamsulosin [Flomax] 0.8 mg PO QPM 09/30/15 [History] Atenolol [Tenormin] 25 mg PO DAILY #30 tablet 12/05/17 [Rx] Losartan [Cozaar] 50 mg PO BID 01/10/19 [History] Allergy/AdvReac Type Severity Reaction Status Date / Time Erythromycin Base AdvReac Diarrhea Verified 11/30/17 23:11 lisinopril AdvReac Diarrhea Verified 11/30/17 23:11 meperidine [From Demerol] AdvReac Diarrhea Verified 11/30/17 23:11 metformin [From Glucophage] AdvReac Diarrhea Verified 11/30/17 23:11 teflan AdvReac Diarrhea Uncoded 04/24/17 16:29 zpack AdvReac Diarrhea Uncoded 04/24/17 16:29 - Constitutional Constitutional: no chills, no fever(s), no night sweats - EENT Eyes: no blurry vision, no change in vision Ears: no ear pain, no tinnitus Nose, mouth and throat: no nasal congestion, no sinus pain, no sinus pressure - Cardiovascular Cardiovascular ROS IM: no chest pain, no dyspnea, no orthopnea, no paroxysmal nocturnal dyspnea - Respiratory Respiratory: no cough, no hemoptysis, no chest congestion, no excessive phlegm production, no change in phlegm color - Gastrointestinal Gastrointestinal: abdominal pain, heartburn, nausea, vomiting, no diarrhea, no hematemesis, no hematochezia, no melena - Genitourinary Genitourinary ROS male: no dysuria, no flank pain, no hematuria - Musculoskeletal Musculoskeletal ROS IM: no arthralgias, no back pain, no myalgias - Integumentary Integumentary IM: no rash, no jaundice - Neurological Neurological ROS: no disequilibrium, no dizziness, no focal weakness, no frequent falls, no headache(s) - Psychiatric Psychiatric: no anxiety, no depression - Endocrine Endocrine IM: no polydipsia, no polyuria - Allergic/Immunologic Allergic/Immunologic: GI upset with certain foods, no wheezing - Constitutional Vitals: Temp Pulse Resp BP Pulse Ox 97.6 F 69 18 191/92 96 01/10/19 00:50 01/10/19 00:50 01/10/19 00:50 01/10/19 00:50 01/10/19 01:24 General appearance: Present: cooperative, mild distress, A&O X 3, pleasant, answers questions appropriately Exam: see below - Head Head exam: Present: atraumatic, normal inspection - Eye Eye exam: Present: EOMI, PERRL. Absent: scleral icterus Pupils: Present: normal accommodation - ENT ENT exam: Present: mucous membranes dry, normal exam, normal oropharynx - Neck Neck exam general surgery: Present: full ROM, supple, trachea midline. Absent: tenderness, nuchal rigidity, thyromegaly - Respiratory Respiratory exam: Present: CTAB. Absent: chest wall tenderness, rales, respiratory distress, rhonchi, wheezes - Cardiovascular Cardiovascular exam: Present: RRR, +S1, +S2. Absent: diastolic murmur, systolic murmur - GI/Abdominal GI/Abdominal exam: Present: hypoactive bowel sounds, tenderness (epigastric, radiating to RUQ and mid-back), no peritoneal signs. Absent: guarding, hepatomegaly, mass, rebound, splenomegaly - Extremities Exam Extremities exam: Present: warm, radial pulses palpable and symmetrical. Absent: calf tenderness, joint swelling, pedal edema, tenderness - Back Exam Back exam: Absent: CVA tenderness (L), CVA tenderness (R) - Neurological Exam Neurological exam: Present: alert, CN II-XII intact, oriented X3, no focal deficits, strengths equal and symetr throughout - Psychiatric Psychiatric exam: Present: normal affect, normal mood - Skin Skin exam: Present: dry, intact, warm Internal Med - H&P Results - Labs CBC & Chem 7: 01/09/19 19:42 01/09/19 19:42 Labs: Short CBC 01/09/19 Range/Units 19:42 WBC 12.1 H (4.3-11.1) K/mcL Hgb 14.6 (12.9-16.9) g/dL Hct 44.4 (37.5-50.1) % Plt Count 179 (140-400) K/mcL Neutrophils # 6.9 (1.6-8.9) K/mcL BMP 01/09/19 19:42 Sodium 137 Potassium 4.2 Chloride 103 Carbon Dioxide 25 BUN 36 H Creatinine 1.84 H Glucose 154 H Calcium 9.7 Liver Function 01/09/19 Range/Units 19:42 Total Bilirubin 0.8 (0.3-1.0) mg/dL Direct Bilirubin 0.1 (0.0-0.2) mg/dL AST 12 L (13-39) Units/L ALT 11 (7-52) Units/L Alkaline Phosphatase 72 (34-104) Units/L Albumin 4.4 (3.5-5.7) g/dL Urine 01/09/19 Range/Units 20:42 Urine Color Yellow (Yellow) Urine Clarity Clear (Clear) Urine pH 5.5 (5.0-8.0) pH Units Ur Specific [place] 1.021 (1.010-1.025) Urine Protein 100 H (Neg-Trace) mg/dL Urine Glucose (UA) 100 H (Normal) mg/dL - Impressions ITS Impressions Abdomen/Pelvis CT 01/09/19 21:24 IMPRESSION: 1. Quite significant peripancreatic head and uncinate process infiltration most compatible with acute pancreatitis in the appropriate clinical setting. No peripancreatic fluid collections. D/ / Juan Manuel Bernardo MD / Juan Manuel Bernardo MD Interpreting Provider: Juan Manuel Bernardo MD - Diagnostic Studies CT scan - abdomen Status: image reviewed by me (c/w pancreatitis) - Assessment and Plan (1) Acute pancreatitis Current Visit: Yes Status: Acute Assessment and plan: 1. NPO, IVF, pain and nausea control. 2. Will trend Amylase and lipase and LFT's. 3. Consult GI. Qualifiers: Pancreatitis type: idiopathic Acute pancreatitis complication: no infection or necrosis Qualified Code(s): K85.00 - Idiopathic acute pancreatitis without necrosis or infection (2) Type 2 diabetes mellitus Current Visit: Yes Status: Chronic Assessment and plan: 1. Hold oral home meds. 2. Will place on SSI and monitor glucose closely. Qualifiers: Diabetes mellitus manager long term care insulin use: with custodial use Diabetes mellitus complication status: without complication Qualified Code(s): E11.9 - Type 2 diabetes mellitus without complications; Z79.4 - jail (current) use of insulin (3) HTN (hypertension) Current Visit: Yes Status: Chronic Assessment and plan: 1. Will resume oral home meds as appropriate. 2. Will use IV Hydralazine as needed for uncontrolled HTN. 3. Monitor BP and adjust meds as necessary. Qualifiers: Hypertension type: essential hypertension Qualified Code(s): I10 - Essential (primary) hypertension (4) DVT prophylaxis Current Visit: Yes Status: Acute Assessment and plan: 1. Heparin SQ.
[2019-01-10 03:08] LABS: Basophils # 0.1 K/mcL (0.0-0.2); Basophils % 0.5 %; Eosinophils # 0.2 K/mcL (0.0-0.6); Eosinophils % 2.2 %; Hematocrit 43.2 % (37.5-50.1); Hemoglobin 14.1 g/dL (12.9-16.9); Immature Granulocytes % 0.4 % (0-4); Lymphocytes # 3.1 K/mcL (0.6-4.6); Mean Corpuscular HGB Conc 32.6 g/dL (31.6-35.5); Mean Corpuscular Hemoglobin 28.2 pg (28.0-33.3); Mean Corpuscular Volume 86.4 fL (83.0-100.0); Mean Platelet Volume 9.7 fL (9.4-12.4); Monocytes % 9.4 %; Neutrophils # 6.5 K/mcL (1.6-8.9); Platelet Count 151 K/mcL (140-400); Red Cell Distribution Width 13.7 % (11.5-14.5); Segmented Neutrophils % 59.5 %
[2019-01-10 03:18] LABS: INR 1.2; Prothrombin Time 13.2 Seconds (9.4-12.1)
[2019-01-10 03:27] LABS: Albumin/Globulin Ratio 1.4 (1.1-2.2); Bilirubin,Direct 0.2 mg/dL (0.0-0.2); Bilirubin,Indirect 0.8 mg/dL (0.0-1.2); Globulin 2.8 g/dL (2.4-3.5); Total Protein 6.8 g/dL (6.4-8.9)
[2019-01-10 03:28] LABS: Albumin 4.1 g/dL (3.5-5.7); Albumin/Globulin Ratio 1.4 (1.1-2.2); Calcium 9.3 mg/dL (8.6-10.3); Chol/HDL Ratio 3.2 (0-4.9); Magnesium 1.6 mg/dL (1.6-2.6); Potassium 3.7 mEq/L (3.5-5.1); Total Protein 7.1 g/dL (6.4-8.9)
[2019-01-10] MEDS ORDERED: Pantoprazole 40 MG VIAL IVP SCH (06:00)
[2019-01-10] MEDS: *HR* Heparin 5,000 UNIT/ML VIAL SQ SCH ×4 (06:12→21:11)
[2019-01-10] MEDS: Insulin LISPRO 300 UNITS/3 ML VIAL SQ SCH ×2 (06:12→18:20)
--- NOTE | 2019-01-10 08:14 | Internal Med Progress Note ---
<Earle Andre - Last Filed: 01/10/19 11:10> Hospitalist Progress Note - Encounter Date of Encounter: 01/10/19 Time of Encounter: 08:00 - Subjective Interval History: No acute events since admission. Patient reports he does not have an abdominal pain or nausea. He does report he wants to stay nothing by mouth for another day before starting a clear liquid diet. He denies diarrhea. - Exam Vitals: Temp Pulse Resp BP Pulse Ox 98.4 F 69 17 168/65 93 01/10/19 07:29 01/10/19 07:29 01/10/19 07:29 01/10/19 07:29 01/10/19 07:29 Exam: General: pleasant, without distress HEENT: Head atraumatic, normocephalic, EOMI, PERRL, absent ear discharge or trauma, Moist Mucous Membranes, uvula midline Neck: nontender to palpation, absent lymphadenopathy, Cardiovascualr: Regular rate and rhythm with no murmur, absent gallops or rubs, absent pedal edema, radial pulses 2 out of 4 Lungs: Clear to auscultation bilaterally, not in respiratory distress Abdomen: Soft nontender, nondistended positive bowel sounds, Skin: warm and dry, absent rash, absent open wounds and nodules MSK: absent clubbing, cyanosis, joints without swelling Neuro: Gait intact, alert oriented 3 Psych: good insight and judgment, - Assessment and Plan (1) Acute pancreatitis Current Visit: Yes Status: Acute Assessment and Plan: Patient presented with abdominal pain and was found to have acute pancreatitis CT abdomen pelvis showed quite significant. Pancreatic head and uncinate process infiltration Lipase was 99 Patient has had 4 episodes before this admission for pancreatitis. Last one documented in the EMR was 2014. He denies alcohol use and has a history of cholecystectomy. Patient had MRI of the abdomen/pancreas in the past without any signs of common bile duct or pancreatic duct obstruction. Patient's triglycerides are within normal limits. GI consulted. We will continue IV fluids and nothing by mouth diet. Zofran when necessary for nausea. (2) Diabetes mellitus Current Visit: Yes Status: Chronic Assessment and Plan: Patient has insulin-dependent diabetes mellitus His hemoglobin A1c is 8.8 Patient reports he does not follow a diabetic diet. NPO and sliding scale insulin. (3) DVT prophylaxis Current Visit: Yes Status: Acute Assessment and Plan: heparin SQ (4) HTN (hypertension) Current Visit: Yes Status: Chronic Assessment and Plan: continue home meds - Time Spent with Patient Total time spent is greater than 50% in coordination of care (as documented) at patient's floor/unit and/or counseling patient: Internal Medicine: Result - Labs CBC & Chem 7: 01/10/19 02:56 01/10/19 02:56 Labs: Short CBC 01/09/19 01/10/19 Range/Units 19:42 02:56 WBC 12.1 H 10.9 (4.3-11.1) K/mcL Hgb 14.6 14.1 (12.9-16.9) g/dL Hct 44.4 43.2 (37.5-50.1) % Plt Count 179 151 (140-400) K/mcL Neutrophils # 6.9 6.5 (1.6-8.9) K/mcL BMP 01/09/19 01/10/19 19:42 02:56 Sodium 137 138 Potassium 4.2 3.7 Chloride 103 107 Carbon Dioxide 25 21 L BUN 36 H 32 H Creatinine 1.84 H 1.63 H Glucose 154 H 117 H Calcium 9.7 9.3 Liver Function 01/09/19 01/10/19 01/10/19 Range/Units 19:42 02:56 02:56 Total Bilirubin 0.8 1.0 1.0 (0.3-1.0) mg/dL Direct Bilirubin 0.1 0.2 (0.0-0.2) mg/dL AST 12 L 17 17 (13-39) Units/L ALT 11 13 12 (7-52) Units/L Alkaline Phosphatase 72 69 73 (34-104) Units/L Albumin 4.4 4.1 4.0 (3.5-5.7) g/dL Urine 01/09/19 Range/Units 20:42 Urine Color Yellow (Yellow) Urine Clarity Clear (Clear) Urine pH 5.5 (5.0-8.0) pH Units Ur Specific [place] 1.021 (1.010-1.025) Urine Protein 100 H (Neg-Trace) mg/dL Urine Glucose (UA) 100 H (Normal) mg/dL - ABG Interpretation ABG results: PT/INR, D-dimer PT 13.2 Seconds (9.4-12.1) H 01/10/19 02:56 - Impressions Impressions Abdomen/Pelvis CT 01/09/19 21:24 IMPRESSION: 1. Quite significant peripancreatic head and uncinate process infiltration most compatible with acute pancreatitis in the appropriate clinical setting. No peripancreatic fluid collections. D/ / Juan Manuel Bernardo MD / Juan Manuel Bernardo MD Interpreting Provider: Juan Manuel Bernardo MD Consult Discharge Plan - Plan Referrals: Willie Aleman MD [Primary Care Provider] - <Juan Francisco Bennett - Last Filed: 01/10/19 14:12> Hospitalist Progress Note - Encounter Date of Encounter: 01/10/19 - Exam Vitals: Temp Pulse Resp BP Pulse Ox 98.4 F 69 17 168/65 93 01/10/19 07:29 01/10/19 07:29 01/10/19 07:29 01/10/19 07:29 01/10/19 07:29 - Assessment and Plan (1) Acute pancreatitis Current Visit: Yes Status: Acute (2) HTN (hypertension) Current Visit: Yes Status: Chronic (3) DVT prophylaxis Current Visit: Yes Status: Acute (4) Type 2 diabetes mellitus Current Visit: Yes Status: Chronic - Time Spent with Patient Total time spent is greater than 50% in coordination of care (as documented) at patient's floor/unit and/or counseling patient: Internal Medicine: Result - Labs CBC & Chem 7: 01/10/19 02:56 01/10/19 02:56 Labs: Short CBC 01/09/19 01/10/19 Range/Units 19:42 02:56 WBC 12.1 H 10.9 (4.3-11.1) K/mcL Hgb 14.6 14.1 (12.9-16.9) g/dL Hct 44.4 43.2 (37.5-50.1) % Plt Count 179 151 (140-400) K/mcL Neutrophils # 6.9 6.5 (1.6-8.9) K/mcL BMP 01/09/19 01/10/19 19:42 02:56 Sodium 137 138 Potassium 4.2 3.7 Chloride 103 107 Carbon Dioxide 25 21 L BUN 36 H 32 H Creatinine 1.84 H 1.63 H Glucose 154 H 117 H Calcium 9.7 9.3 Liver Function 01/09/19 01/10/19 01/10/19 Range/Units 19:42 02:56 02:56 Total Bilirubin 0.8 1.0 1.0 (0.3-1.0) mg/dL Direct Bilirubin 0.1 0.2 (0.0-0.2) mg/dL AST 12 L 17 17 (13-39) Units/L ALT 11 13 12 (7-52) Units/L Alkaline Phosphatase 72 69 73 (34-104) Units/L Albumin 4.4 4.1 4.0 (3.5-5.7) g/dL Urine 01/09/19 Range/Units 20:42 Urine Color Yellow (Yellow) Urine Clarity Clear (Clear) Urine pH 5.5 (5.0-8.0) pH Units Ur Specific [place] 1.021 (1.010-1.025) Urine Protein 100 H (Neg-Trace) mg/dL Urine Glucose (UA) 100 H (Normal) mg/dL - ABG Interpretation ABG results: PT/INR, D-dimer PT 13.2 Seconds (9.4-12.1) H 01/10/19 02:56 - Impressions Impressions Abdomen/Pelvis CT 01/09/19 21:24 IMPRESSION: 1. Quite significant peripancreatic head and uncinate process infiltration most compatible with acute pancreatitis in the appropriate clinical setting. No peripancreatic fluid collections. D/ / Juan Manuel Bernardo MD / Juan Manuel Bernardo MD Interpreting Provider: Juan Manuel Bernardo MD - Attending Attestation I have seen and independently assessed this patient and I agree with plan as documented above Plan Acute Pancreatitis. NPO. IV fluids. Advance diet as tolerated. GI recommend outpatient EUS <Earle Andre Dorian - Last Filed: 01/10/19 11:10> (1) Acute pancreatitis Qualifiers: Pancreatitis type: idiopathic Acute pancreatitis complication: no infection or necrosis Qualified Code(s): K85.00 - Idiopathic acute pancreatitis without necrosis or infection (2) Diabetes mellitus Qualifiers: Diabetes mellitus type: type 2 Diabetes mellitus bag shaker insulin use: with intermediate use Diabetes mellitus complication status: with hyperglycemia Qualified Code(s): E11.65 - Type 2 diabetes mellitus with hyperglycemia; Z79.4 - property and supply officer (current) use of insulin; Z79.4 - longterm (current) use of insulin; Z79.4 - property and supply officer (current) use of insulin; Z79.4 - property and supply officer (current) use of insulin (4) HTN (hypertension) Qualifiers: Hypertension type: essential hypertension Qualified Code(s): I10 - Essential (primary) hypertension <Juan Francisco Bennett - Last Filed: 01/10/19 14:12> (1) Acute pancreatitis Qualifiers: Pancreatitis type: idiopathic Acute pancreatitis complication: no infection or necrosis Qualified Code(s): K85.00 - Idiopathic acute pancreatitis without necrosis or infection (2) HTN (hypertension) Qualifiers: Hypertension type: essential hypertension Qualified Code(s): I10 - Essential (primary) hypertension (4) Type 2 diabetes mellitus Qualifiers: Diabetes mellitus intermediate insulin use: with intermediate use Diabetes mellitus complication status: without complication Qualified Code(s): E11.9 - Type 2 diabetes mellitus without complications; Z79.4 - longterm (current) use of insulin
[2019-01-10] MEDS: Pantoprazole 40 MG VIAL IVP SCH (08:40)
[2019-01-10 08:52] LABS: Estimated Average Glucose 206 mg/dl; Hemoglobin A1C 8.8 %
--- NOTE | 2019-01-10 11:02 | Event Note ---
Date of Encounter: 01/10/19 Time of Encounter: 11:00 - Nephrology Event Note Nephrology Chart Review We received a courtesy notification of his admission as he follows with Dr. Sanches in the office for CKD stage III. The hospitalist team said we were not formerly consulted since his renal function is at baseline. Please feel free to call or page me with any questions. Thank you.
--- NOTE | 2019-01-10 12:33 | Gastroenterology Consult Note ---
Date of Encounter: 01/10/19 Time of Encounter: 11:35 - Assessment and plan (1) Pancreatitis Current Visit: Yes Status: Acute Assessment and plan: Unknown etiology. He is s/p cholecystectomy. He denies alcohol use. Triglycerides normal. No CBD dilation noted on CT (01/09/2019) and MRCP (12/01/2017). Check IgG4, ionized calcium, and SAYRA. Can advance to clear liquid diet and advance slowly as tolerated. Pt requests to remain NPO for now. Consider EUS as outpatient. Continue IV fluids, pain control and antiemetics. Qualifiers: Chronicity: acute Pancreatitis type: unspecified pancreatitis type Acute pancreatitis complication: unspecified Qualified Code(s): K85.90 - Acute pancreatitis without necrosis or infection, unspecified - Time Spent With Patient Total time spent is greater than 50% in coordination of care (as documented) at patient's floor/unit and/or counseling patient: GI History of Present Illness - Data of Consult Patient: new to practice Consult date: 01/10/19 Requesting Physician: Juan Francisco Bennett - Consult Narrative Reason for consult: recurrent pancreatitis History of present illness: Mr. Iniguez is a 78 year old male with PMHx of DM, HTN, and pancreatitis who presented to the ED with epigastric pain which radiates to his back that started on Tuesday. He denied any nausea or vomiting. He has had 4 previous episodes of pancreatitis. He denies alcohol consumption. He is s/p cholecystectomy. LFTs wnl, triglycerides normal, lipase 99 on admission and [address] A/P shows si gnificant peripancreatic head and uncinate process infiltration most compatible with acute pancreatitis. 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 Procedures: EGD 12/03/2017 Dr. Morfin: Chronic gastritis. EGD 04/03/2013 Dr. Lawrence: Dilation of the lower esophageal sphincter. EGD 07/07/2012 Dr. Shultz: Gastritis. Colonoscopy 04/12/2008 Dr. Infante: 3 hyperplastic polyps. NSAIDs: None Anticoagulation: None Past Med Surg Social Fam HX - Past Medical History Medical history: hypertension, other Additional medical history: pancreatitis Psychiatric history: no psych history - Past Surgical History Surgical History: appendectomy, cholecystectomy Additional surgical history: SBO -- lysis of adhesions - Social History Smoking Status: Never smoker Smokeless Tobacco Status: No Alcohol use: none Drug use: none - Family History Grandmother Hx Family Endocrine Disorder: Yes (Diabetes) Mother Hx Family Cancer: Yes (breast) - Gastrointestinal Gastrointestinal: Present: as per HPI - Constitutional Constitutional: as per HPI - EENT Eyes: as per HPI Ears: Present: as per HPI Nose, mouth and throat: Present: as per HPI - Cardiovascular Cardiovascular ROS: Present: as per HPI - Respiratory Respiratory IM: Present: as per HPI - Genitourinary Genitourinary: Absent: change in color, Urinary frequency - Neurological ROS Neurological GI: Present: as per HPI - Hematologic/Lymphatic Hematologic/Lymphatic pediatric: Present: as per HPI - Musculoskeletal Musculoskeletal ROS GI: Present: as per HPI - Integumentary Integumentary GI: Present: as per HPI - Psychiatric ROS Psychiatric GI: Present: as per HPI - Endocrine Endocrine IM: Present: as per HPI - Constitutional Vitals: Temp Pulse Resp BP Pulse Ox 98.4 F 69 17 168/65 93 01/10/19 07:29 01/10/19 07:29 01/10/19 07:29 01/10/19 07:29 01/10/19 07:29 General appearance: Present: cooperative, A&O X 3, no acute distress, answers questions appropriately - Head Head exam: Present: atraumatic, normocephalic - Eye Eye exam: Present: normal appearance, sclera anicteric - ENT ENT exam: Present: mucous membranes dry - Neck Neck exam general surgery: Present: normal inspection, trachea midline - Respiratory Respiratory exam: Present: CTAB. Absent: rales, rhonchi - Cardiovascular Cardiovascular exam: Present: RRR, +S1, +S2 - GI/Abdominal GI/Abdominal exam: Present: normal bowel sounds, soft, tenderness (epigastric), no peritoneal signs. Absent: distended, firm, guarding - Rectal Rectal exam: Present: deferred - Extremities Exam Extremities exam: Present: warm - Neurological Exam Neurological exam: Present: no focal deficits - Psychiatric Psychiatric exam: Present: normal affect, normal mood - Skin Skin exam: Present: dry, intact, normal color, warm Results - Labs CBC & Chem 7: 01/10/19 02:56 01/10/19 02:56 Labs: Last Result Calcium 9.3 mg/dL (8.6-10.3) 01/10/19 02:56 Triglycerides 91 mg/dL (< 150) 01/10/19 02:56 Entire Visit Hgb 14.1 g/dL (12.9-16.9) 01/10/19 02:56 Hct 43.2 % (37.5-50.1) 01/10/19 02:56 PT 13.2 Seconds (9.4-12.1) H 01/10/19 02:56 Total Bilirubin 1.0 mg/dL (0.3-1.0) 01/10/19 02:56 AST 17 Units/L (13-39) 01/10/19 02:56 ALT 13 Units/L (7-52) 01/10/19 02:56 Amylase 46 Units/L (29-103) 01/10/19 02:56 Lipase 65 Units/L (11-82) 01/10/19 02:56 - ABG ABG results: PT/INR, D-dimer PT 13.2 Seconds (9.4-12.1) H 01/10/19 02:56 - Impressions Impressions Abdomen/Pelvis CT 01/09/19 21:24 IMPRESSION: 1. Quite significant peripancreatic head and uncinate process infiltration most compatible with acute pancreatitis in the appropriate clinical setting. No peripancreatic fluid collections. D/ / Juan Manuel Bernardo MD / Juan Manuel Bernardo MD Interpreting Provider: Juan Manuel Bernardo MD Consult Discharge Plan - Plan Referrals: Willie Aleman MD [Primary Care Provider] -
[2019-01-10] MEDS ORDERED: Insulin LISPRO 300 UNITS/3 ML VIAL SQ SCH (21:00)
[2019-01-11] MEDS: *HR* FentaNYL (PF) 100 MCG/2 ML VIAL IVP PRN ×4 (06:05→20:49)
[2019-01-11] MEDS: *HR* Heparin 5,000 UNIT/ML VIAL SQ SCH ×3 (06:06→21:12)
[2019-01-11] MEDS ORDERED: Insulin LISPRO 300 UNITS/3 ML VIAL SQ SCH ×3 (07:30→21:00)
[2019-01-11] MEDS: Pantoprazole 40 MG VIAL IVP SCH (08:01)
--- NOTE | 2019-01-11 09:56 | Internal Med Progress Note ---
<Earle Andre - Last Filed: 01/11/19 09:53> Hospitalist Progress Note - Encounter Date of Encounter: 01/11/19 Time of Encounter: 09:53 - Subjective Interval History: Patient reports diarrhea since restarting his diet yesterday. She reports diarrhea is watery. Denies any melena or hematochezia. He reports improved abd ominal pain. He denies nausea. He is ambulating in the hallways. - Exam Vitals: Temp Pulse Resp BP Pulse Ox 99.9 F H 66 15 133/64 93 01/11/19 07:38 01/11/19 07:38 01/11/19 07:38 01/11/19 07:38 01/11/19 07:38 Exam: General: pleasant, without distress HEENT: Head atraumatic, normocephalic, EOMI, PERRL, absent ear discharge or trauma, Moist Mucous Membranes, uvula midline Neck: nontender to palpation, absent lymphadenopathy, Cardiovascualr: Regular rate and rhythm with no murmur, absent gallops or rubs, absent pedal edema, radial pulses 2 out of 4 Lungs: Clear to auscultation bilaterally, not in respiratory distress Abdomen: Soft nontender, nondistended positive bowel sounds, Skin: warm and dry, absent rash, absent open wounds and nodules MSK: absent clubbing, cyanosis, joints without swelling Neuro: Gait intact, alert oriented 3 Psych: good insight and judgment, - Assessment and Plan (1) Acute pancreatitis Current Visit: Yes Status: Acute Assessment and Plan: Patient is tolerating his clear liquid diet but reports developing diarrhea. Appreciate GI recommendations. Awaiting IgG4, ionized calcium and SAYRA labs. We will continue when necessary pain control and when necessary nausea Start patient on pancreatic enzymes. (2) Diabetes mellitus Current Visit: Yes Status: Chronic Assessment and Plan: Continue diabetic diet Sliding scale insulin (3) DVT prophylaxis Current Visit: Yes Status: Acute Assessment and Plan: Heparin subcutaneous (4) HTN (hypertension) Current Visit: Yes Status: Chronic Assessment and Plan: Controlled continue home medications. - Time Spent with Patient Total time spent is greater than 50% in coordination of care (as documented) at patient's floor/unit and/or counseling patient: Internal Medicine: Result - Labs CBC & Chem 7: 01/10/19 02:56 01/10/19 02:56 - ABG Interpretation ABG results: PT/INR, D-dimer PT 13.2 Seconds (9.4-12.1) H 01/10/19 02:56 Consult Discharge Plan - Plan Referrals: Willie Aleman MD [Primary Care Provider] - <Juan Francisco Bennett - Last Filed: 01/11/19 11:37> Hospitalist Progress Note - Encounter Date of Encounter: 01/11/19 - Exam Vitals: Temp Pulse Resp BP Pulse Ox 99.9 F H 66 15 133/64 93 01/11/19 07:38 01/11/19 07:38 01/11/19 07:38 01/11/19 07:38 01/11/19 07:38 - Assessment and Plan (1) Acute pancreatitis Current Visit: Yes Status: Acute (2) HTN (hypertension) Current Visit: Yes Status: Chronic (3) DVT prophylaxis Current Visit: Yes Status: Acute (4) Type 2 diabetes mellitus Current Visit: Yes Status: Chronic - Time Spent with Patient Total time spent is greater than 50% in coordination of care (as documented) at patient's floor/unit and/or counseling patient: Internal Medicine: Result - Labs CBC & Chem 7: 01/10/19 02:56 01/10/19 02:56 - ABG Interpretation ABG results: PT/INR, D-dimer PT 13.2 Seconds (9.4-12.1) H 01/10/19 02:56 - Attending Attestation I have seen and independently assessed this patient and I agree with plan as documented above Plan Acute Pancreatitis vs acute on chronic pancreatitis. IV fluids. Advance diet as tolerated. GI recommend outpatient EUS, and IgG4, SAYRA to assess for autoimmune chronic pancreatitis <Earle Andre - Last Filed: 01/11/19 09:53> (1) Acute pancreatitis Qualifiers: Pancreatitis type: idiopathic Acute pancreatitis complication: no infection or necrosis Qualified Code(s): K85.00 - Idiopathic acute pancreatitis without necrosis or infection (2) Diabetes mellitus Qualifiers: Diabetes mellitus type: type 2 Diabetes mellitus detention insulin use: with terminal operations supervisor use Diabetes mellitus complication status: with hyperglycemia Qualified Code(s): E11.65 - Type 2 diabetes mellitus with hyperglycemia; Z79.4 - residential (current) use of insulin; Z79.4 - marine oil terminal superintendent (current) use of insulin; Z79.4 - residential (current) use of insulin; Z79.4 - marine oil terminal superintendent (current) use of insulin (4) HTN (hypertension) Qualifiers: Hypertension type: essential hypertension Qualified Code(s): I10 - Essential (primary) hypertension <Juan Francisco Bennett - Last Filed: 01/11/19 11:37> (1) Acute pancreatitis Qualifiers: Pancreatitis type: idiopathic Acute pancreatitis complication: no infection or necrosis Qualified Code(s): K85.00 - Idiopathic acute pancreatitis without necrosis or infection (2) HTN (hypertension) Qualifiers: Hypertension type: essential hypertension Qualified Code(s): I10 - Essential (primary) hypertension (4) Type 2 diabetes mellitus Qualifiers: Diabetes mellitus detention insulin use: with terminal operations supervisor use Diabetes mellitus complication status: without complication Qualified Code(s): E11.9 - Type 2 diabetes mellitus without complications; Z79.4 - residential (current) use of insulin
[2019-01-11] MEDS: Insulin LISPRO 300 UNITS/3 ML VIAL SQ SCH ×3 (11:45→21:21)
[2019-01-12] MEDS: *HR* FentaNYL (PF) 100 MCG/2 ML VIAL IVP PRN ×3 (00:13→08:27)
[2019-01-12] MEDS: *HR* Heparin 5,000 UNIT/ML VIAL SQ SCH (04:24)
[2019-01-12] MEDS: Insulin LISPRO 300 UNITS/3 ML VIAL SQ SCH (08:22)
[2019-01-12] MEDS ORDERED: *HR* OxyCODONE Immed Rel 5 MG TABLET PO PRN (08:31)
--- NOTE | 2019-01-12 10:06 | Discharge Summary ---
<Earle Andre - Last Filed: 01/12/19 10:01> - NOTES TO OUTPATIENT PROVIDER Notes to Outpatient Provider: Admitted for acute on chronic pancreatitis. Follow-up with GI for pending labs. Started on pancreatic enzymes. She was instructed to follow full liquid diet for 1 week and also adhere to low-fat, low-salt, diabetic diet. Orders not resulted at time of discharge: Pending orders 01/10/19 00:43 ECG 12 lead ECG [ECG] Routine 01/10/19 15:37 SAYRA IgG JOSEY rflx IFA Routine Immunoglobulin G Subclass 4 Routine Date of Encounter: 01/12/19 Time of Encounter: 10:01 - Discharge Diagnosis (1) Acute pancreatitis Priority: Primary Status: Acute Qualifiers: Pancreatitis type: idiopathic Acute pancreatitis complication: no infection or necrosis Qualified Code(s): K85.00 - Idiopathic acute pancreatitis without necrosis or infection (2) Diabetes mellitus Priority: Secondary Status: Chronic Qualifiers: Diabetes mellitus type: type 2 Diabetes mellitus senior care insulin use: with senior care use Diabetes mellitus complication status: with hyperglycemia Qualified Code(s): E11.65 - Type 2 diabetes mellitus with hyperglycemia; Z79.4 - cable operator (current) use of insulin; Z79.4 - custodial (current) use of insulin; Z79.4 - custodial (current) use of insulin; Z79.4 - cable operator (current) use of insulin (3) DVT prophylaxis Priority: Secondary Status: Acute (4) HTN (hypertension) Priority: Secondary Status: Chronic Qualifiers: Hypertension type: essential hypertension Qualified Code(s): I10 - Essential (primary) hypertension Hospital course: Mr. Iniguez is a 78 year old male admitted for nausea, vomiting, abdominal pain. Patient was found to have acute pancreatitis as seen on CT abdomen and pelvis. He was started on IV antibiotics, symptomatic control for nausea as well as IV fluids. Patient has had 4 total episodes of pancreatitis with previous workup being negative. Triglycerides were within normal limits. He denies drinking alcohol has a history of cholecystectomy. Patient had MRI of the abdomen was/pancreas in December 2017 which showed no evidence of biliary or pancreatic ductal dilation no choledocholithiasis. GI was consulted for further evaluation. GI send labs for IgG4, ionized calcium, antinuclear antibody and r ecommended possible EUS outpatient. Patient was transitioned to a by mouth diet and tolerated a full liquid diet. He developed diarrhea while restarting his diet. He was started on pancreatic enzymes which resulted diarrhea. This morning he is tolerating a full code diet ambulating independently. He was told to continue full liquid diet for another week and increase his fluid intake. He will follow-up with GI outpatient. He is also told to follow a strict low fat diabetic diet. Discharge discussed with: patient, family - Time Spent with Patient Total time spent providing and/or coordinating discharge services: - Discharge Medications Prescriptions: New OxyCODONE Immed Rel [Roxicodone 5 MG] 5 mg PO Q6HR PRN 3 Days #12 tablet PRN Reason: Severe Pain Lipase/Protease/Amylase [Maris Ruggiero 6,000 Units Capsule] 2 each PO TIDWM #180 capsule. Continue Albuterol Sulfate [Albuterol Inhaler] 2 puff IH Q4HR PRN PRN Reason: Shortness Of Breath/Wheezing Tamsulosin [Flomax] 0.8 mg PO QPM Lansoprazole [Prevacid] 30 mg PO BID Atenolol [Tenormin] 25 mg PO DAILY #30 tablet Losartan [Cozaar] 50 mg PO BID Atorvastatin [Lipitor] 40 mg PO QAM Fluticasone Propionate Nasal [Flonase] 100 mcg NS DAILY Insulin ASPART [NovoLOG] 6 unit SQ 0800,1200 Insulin ASPART [NovoLOG] 12 unit SQ 1700 Insulin Degludec [Tresiba] 60 unit SQ QAM Fluticasone Propionate [Flovent Hfa] 110 mcg IH BID Home Medications: Albuterol Sulfate [Albuterol Inhaler] 2 puff IH Q4HR PRN 09/30/15 [History] Lansoprazole [Prevacid] 30 mg PO BID 09/30/15 [History] Tamsulosin [Flomax] 0.8 mg PO QPM 09/30/15 [History] Atenolol [Tenormin] 25 mg PO DAILY #30 tablet 12/05/17 [Rx] Losartan [Cozaar] 50 mg PO BID 01/10/19 [History] Atorvastatin [Lipitor] 40 mg PO QAM 01/11/19 [History] Fluticasone Propionate Nasal [Flonase] 100 mcg NS DAILY 01/11/19 [History] Fluticasone Propionate [Flovent Hfa] 110 mcg IH BID 01/11/19 [History] Insulin ASPART [NovoLOG] 6 unit SQ 0800,1200 01/11/19 [History] Insulin ASPART [NovoLOG] 12 unit SQ 1700 01/11/19 [History] Insulin Degludec [Tresiba] 60 unit SQ QAM 01/11/19 [History] Lipase/Protease/Amylase [Maris Ruggiero 6,000 Units Capsule] 2 each PO TIDWM #180 capsule. 01/12/19 [Rx] OxyCODONE Immed Rel [Roxicodone 5 MG] 5 mg PO Q6HR PRN 3 Days #12 tablet 01/12/19 [Rx] Allergies/Adverse Reactions: Allergy/AdvReac Type Severity Reaction Status Date / Time Erythromycin Base AdvReac Diarrhea Verified 11/30/17 23:11 lisinopril AdvReac Diarrhea Verified 11/30/17 23:11 meperidine [From Demerol] AdvReac Diarrhea Verified 11/30/17 23:11 metformin [From Glucophage] AdvReac Diarrhea Verified 11/30/17 23:11 teflan AdvReac Diarrhea Uncoded 04/24/17 16:29 zpack AdvReac Diarrhea Uncoded 04/24/17 16:29 Date of admission: 01/10/19 00:43 Primary care physician: Willie Aleman MD Consults: 01/10/19 00:43 Consult to Gastroenterology [CONS] Routine Consulting Provider: Gastroenterology Kristen Reason for Consult: recurrent pancreatitis Call Completed: No Consult to Nephrology [CONS] Routine Consulting Provider: Kidney Kristen/DELBERT/JOAO/AARON Reason for Consult: CKD; patient request Call Completed: No Discharging clinician: Earle Alarcon Jes - Constitutional Vitals: Temp Pulse Resp BP Pulse Ox 98.6 F 78 14 160/98 98 01/12/19 08:17 01/12/19 08:17 01/12/19 08:17 01/12/19 08:17 01/12/19 08:17 General appearance: Present: cooperative, mild distress, A&O X 3, pleasant, answers questions appropriately Exam: General: pleasant, without distress HEENT: Head atraumatic, normocephalic, EOMI, PERRL, absent ear discharge or trauma, Moist Mucous Membranes, uvula midline Neck: nontender to palpation, absent lymphadenopathy, Cardiovascualr: Regular rate and rhythm with no murmur, absent gallops or rubs, absent pedal edema, radial pulses 2 out of 4 Lungs: Clear to auscultation bilaterally, not in respiratory distress Abdomen: Soft nontender, nondistended positive bowel sounds, Skin: warm and dry, absent rash, absent open wounds and nodules MSK: absent clubbing, cyanosis, joints without swelling Neuro: Gait intact, alert oriented 3 Psych: good insight and judgment, - Patient Status Disposition: Home, Self-Care Condition: Fair Functional capacity at discharge: independent ambulation Overall status at discharge: patient is progressing back to baseline - Discharge Instructions Instructions: Oxycodone, Rapid Release (By mouth), Pancreatitis (DC), Complete Blenderized Diet (DC) Follow Up With: Willie Aleman MD [Primary Care Provider] - 01/18/19 1:30 pm (Please follow up as schedule...) Heather Lawrence MD [Partnered Physician] - 01/24/19 3:15 pm (hospital follow up, acute on chornic pancreatitis) - Diet and Activity Activity: increase activity as tolerated Diet: diabetic diet, low fat, low cholesterol, low salt diet <Juan Francisco Bennett - Last Filed: 01/12/19 17:51> Orders not resulted at time of discharge: Pending orders 01/10/19 00:43 ECG 12 lead ECG [ECG] Routine 01/10/19 15:37 SAYRA IgG JOSEY rflx IFA Routine Immunoglobulin G Subclass 4 Routine Date of Encounter: 01/12/19 - Discharge Diagnosis (1) Acute pancreatitis Status: Acute Qualifiers: Pancreatitis type: idiopathic Acute pancreatitis complication: no infection or necrosis Qualified Code(s): K85.00 - Idiopathic acute pancreatitis without necrosis or infection (2) HTN (hypertension) Status: Chronic Qualifiers: Hypertension type: essential hypertension Qualified Code(s): I10 - Essential (primary) hypertension (3) DVT prophylaxis Status: Acute (4) Type 2 diabetes mellitus Status: Chronic Qualifiers: Diabetes mellitus sound controller insulin use: with sound controller use Diabetes mellitus complication status: without complication Qualified Code(s): E11.9 - Type 2 diabetes mellitus without complications; Z79.4 - cable operator (current) use of insulin Hospital course: Mr. Iniguez is a 78 year old male - Time Spent with Patient Total time spent providing and/or coordinating discharge services: Date of admission: 01/10/19 00:43 Primary care physician: Willie Aleman MD Consults: 01/10/19 00:43 Consult to Gastroenterology [CONS] Routine Consulting Provider: Gastroenterology Kristen Reason for Consult: recurrent pancreatitis Call Completed: No Consult to Nephrology [CONS] Routine Consulting Provider: Kidney Kristen/DELBERT/JOAO/AARON Reason for Consult: CKD; patient request Call Completed: No - Constitutional Vitals: Temp Pulse Resp BP Pulse Ox 98.5 F 64 20 109/71 95 01/12/19 11:09 01/12/19 11:09 01/12/19 11:09 01/12/19 11:09 01/12/19 11:09 - Attending Attestation I have seen and independently assessed this patient and I agree with plan as documented above Exam Gen. NAD Abd. Soft CVS. Normal S1 S2 Resp. CTAB Plan Acute Pancreatitis vs acute on chronic pancreatitis. IV fluids. Advance diet as tolerated. GI recommend outpatient EUS, and IgG4, SAYRA to assess for autoimmune chronic pancreatitis. He was started on pancreatic enzymes prior to discharge He will follow up with GI outpatient for EUS. 35 minutes was spent discharging this patient
[2019-01-12 11:13] VITALS: BP 109/71
[2019-01-13 07:57] LABS: ANA IgG by ELISA NONE DETECTED (None Detected)
== END 2019-01-12 11:35 | disposition home or self-care (01) | DRG 440 ==
LOC: EMEROOARM 18:11 → 2ANU 18:11 → SUATTDRO 01-10 00:43
PROVIDERS: ADMIT Internal Medicine; ATTEND Student in an Organized Health Care Education/Training Program

== ENCOUNTER 2020-03-13 00:18 | Inpatient (IN) ==
[2020-03-13 01:09] LABS: Basophils # 0.1 K/mcL (0.0-0.2); Basophils % 0.5 %; Eosinophils # 0.3 K/mcL (0.0-0.6); Eosinophils % 2.5 %; Hematocrit 44.9 % (37.5-50.1); Hemoglobin 14.4 g/dL (12.9-16.9); Immature Granulocytes % 0.4 % (0-4); Lymphocytes # 3.6 K/mcL (0.6-4.6); Lymphocytes % 31.2 %; Mean Corpuscular HGB Conc 32.1 g/dL (31.6-35.5); Mean Corpuscular Hemoglobin 28.5 pg (28.0-33.3); Mean Corpuscular Volume 88.9 fL (83.0-100.0); Mean Platelet Volume 10.2 fL (9.4-12.4); Monocytes # 0.7 K/mcL (0.0-1.3); Monocytes % 6.4 %; Neutrophils # 6.9 K/mcL (1.6-8.9); Platelet Count 233 K/mcL (140-400); Red Blood Count 5.05 M/mcL (4.19-5.50); Red Cell Distribution Width 14.2 % (11.5-14.5); White Blood Count 11.6 K/mcL (4.3-11.1)
[2020-03-13 01:17] LABS: Albumin 4.2 g/dL (3.5-5.7); Albumin/Globulin Ratio 1.3 (1.1-2.2); Calcium 9.5 mg/dL (8.6-10.3); Globulin 3.2 g/dL (2.4-3.5); Total Protein 7.4 g/dL (6.4-8.9)
[2020-03-13 01:20] LABS: INR 1.1; Prothrombin Time 12.3 Seconds (9.4-12.1)
[2020-03-13 01:22] LABS: Activated Partial Thrombo Time 37.6 Seconds (26.0-36.0); Troponin I 0.07 ng/mL (< 0.04)
[2020-03-13] MEDS ORDERED: Furosemide 40 MG/4 ML VIAL IVP ONE (01:56)
[2020-03-13] MEDS ORDERED: Aspirin 81 MG TAB.CHEW PO ONE (02:00)
[2020-03-13] MEDS ORDERED: Naloxone 0.4 MG/ML INJ IVP PRN (05:08)
[2020-03-13] MEDS ORDERED: Dextrose Gel 15 GM/37.5 ML TUBE PO PRN ×2 (05:10)
[2020-03-13] MEDS ORDERED: D5% in Water 1,000 ML IVC PRN (05:10)
[2020-03-13] MEDS ORDERED: *HR* Dextrose 50 % in Water (Syg) 50 ML SYRINGE IVP PRN (05:10)
[2020-03-13] MEDS: *HR* Heparin 5,000 UNIT/ML VIAL SQ SCH ×2 (05:45→17:47)
[2020-03-13 06:52] LABS: Troponin I 0.08 ng/mL (< 0.04)
[2020-03-13] MEDS: Insulin LISPRO 300 UNITS/3 ML VIAL SQ SCH ×4 (07:58→20:41)
[2020-03-13] MEDS: polyethylene glycoL 3350 17 GM POWD.PACK PO SCH (07:59)
[2020-03-13] MEDS ORDERED: Fluticasone Propionate Nasal 50 MCG/SPRAY BOTTLE NS PRN (12:46)
[2020-03-13] MEDS: amLODIPine 5 MG TABLET PO SCH (14:11)
[2020-03-13] MEDS: Insulin DETEMIR 100 UNIT/ML X5UNITS SQ SCH (14:11)
[2020-03-13] MEDS: Furosemide 40 MG/4 ML VIAL IVP SCH ×2 (14:41→20:41)
[2020-03-14] MEDS ORDERED: Acetaminophen 325 MG TABLET PO ONE (01:20)
[2020-03-14 04:46] LABS: Basophils # 0.1 K/mcL (0.0-0.2); Basophils % 0.8 %; Eosinophils # 0.4 K/mcL (0.0-0.6); Eosinophils % 3.6 %; Hematocrit 42.3 % (37.5-50.1); Hemoglobin 14.1 g/dL (12.9-16.9); Immature Granulocytes % 0.3 % (0-4); Lymphocytes # 3.6 K/mcL (0.6-4.6); Mean Corpuscular HGB Conc 33.3 g/dL (31.6-35.5); Mean Corpuscular Hemoglobin 29.4 pg (28.0-33.3); Mean Corpuscular Volume 88.1 fL (83.0-100.0); Mean Platelet Volume 10.3 fL (9.4-12.4); Monocytes # 0.9 K/mcL (0.0-1.3); Monocytes % 8.1 %; Neutrophils # 6.5 K/mcL (1.6-8.9); Platelet Count 217 K/mcL (140-400); Segmented Neutrophils % 56.2 %; White Blood Count 11.5 K/mcL (4.3-11.1)
[2020-03-14] MEDS: *HR* Heparin 5,000 UNIT/ML VIAL SQ SCH ×2 (05:02→17:04)
[2020-03-14 05:07] LABS: Calcium 9.4 mg/dL (8.6-10.3); Magnesium 1.7 mg/dL (1.6-2.6); Phosphorous 4.8 mg/dL (2.7-4.5); Potassium 3.7 mEq/L (3.5-5.1)
[2020-03-14] MEDS ORDERED: Regadenoson 0.4 MG/5 ML SYRINGE IVP ONE (06:08)
[2020-03-14] MEDS: Insulin LISPRO 300 UNITS/3 ML VIAL SQ SCH ×4 (08:14→20:44)
[2020-03-14] MEDS: Furosemide 40 MG/4 ML VIAL IVP SCH (08:14)
[2020-03-14] MEDS: Insulin DETEMIR 100 UNIT/ML X5UNITS SQ SCH (08:15)
[2020-03-14] MEDS ORDERED: Metoprolol XL (24 HR) Succ 25 MG TAB.ER.24H PO SCH (09:45)
[2020-03-14] MEDS: polyethylene glycoL 3350 17 GM POWD.PACK PO SCH (11:52)
[2020-03-14] MEDS: amLODIPine 5 MG TABLET PO SCH (11:52)
[2020-03-15] MEDS: *HR* Heparin 5,000 UNIT/ML VIAL SQ SCH ×2 (05:33→17:15)
[2020-03-15 06:51] LABS: Basophils # 0.1 K/mcL (0.0-0.2); Basophils % 0.5 %; Eosinophils # 0.5 K/mcL (0.0-0.6); Eosinophils % 3.2 %; Hematocrit 46.2 % (37.5-50.1); Hemoglobin 14.7 g/dL (12.9-16.9); Immature Granulocytes % 0.5 % (0-4); Lymphocytes # 4.7 K/mcL (0.6-4.6); Lymphocytes % 31.1 %; Mean Corpuscular HGB Conc 31.8 g/dL (31.6-35.5); Mean Corpuscular Hemoglobin 28.5 pg (28.0-33.3); Mean Corpuscular Volume 89.7 fL (83.0-100.0); Mean Platelet Volume 9.9 fL (9.4-12.4); Monocytes # 1.1 K/mcL (0.0-1.3); Monocytes % 7.3 %; Neutrophils # 8.7 K/mcL (1.6-8.9); Platelet Count 234 K/mcL (140-400); Red Blood Count 5.15 M/mcL (4.19-5.50); Red Cell Distribution Width 14.2 % (11.5-14.5); Segmented Neutrophils % 57.4 %; White Blood Count 15.1 K/mcL (4.3-11.1)
[2020-03-15 07:11] LABS: Calcium 9.3 mg/dL (8.6-10.3); Magnesium 1.8 mg/dL (1.6-2.6); Phosphorous 4.6 mg/dL (2.7-4.5); Potassium 3.6 mEq/L (3.5-5.1)
[2020-03-15] MEDS: Insulin LISPRO 300 UNITS/3 ML VIAL SQ SCH ×4 (08:02→20:30)
[2020-03-15] MEDS: Metoprolol XL (24 HR) Succ 25 MG TAB.ER.24H PO SCH (08:09)
[2020-03-15] MEDS: polyethylene glycoL 3350 17 GM POWD.PACK PO SCH (08:09)
[2020-03-15] MEDS: amLODIPine 5 MG TABLET PO SCH (08:09)
[2020-03-15] MEDS: Insulin DETEMIR 100 UNIT/ML X5UNITS SQ SCH (08:12)
[2020-03-15] MEDS ORDERED: 0.9 % Sodium Chloride 1,000 ML IVC SCH (20:15)
[2020-03-15] MEDS ORDERED: 0.9 % Sodium Chloride 500 ML IVC SCH (20:45)
[2020-03-16 02:43] LABS: Hematocrit 43.1 % (37.5-50.1); Hemoglobin 13.9 g/dL (12.9-16.9); Mean Corpuscular HGB Conc 32.3 g/dL (31.6-35.5); Mean Corpuscular Hemoglobin 28.7 pg (28.0-33.3); Mean Platelet Volume 10.1 fL (9.4-12.4); Platelet Count 220 K/mcL (140-400); Red Blood Count 4.84 M/mcL (4.19-5.50); White Blood Count 10.5 K/mcL (4.3-11.1)
[2020-03-16 03:03] LABS: Calcium 8.9 mg/dL (8.6-10.3); Potassium 3.4 mEq/L (3.5-5.1)
[2020-03-16] MEDS: *HR* Heparin 5,000 UNIT/ML VIAL SQ SCH ×2 (05:34→17:08)
[2020-03-16] MEDS: Insulin LISPRO 300 UNITS/3 ML VIAL SQ SCH ×4 (09:04→21:11)
[2020-03-16] MEDS: Metoprolol XL (24 HR) Succ 25 MG TAB.ER.24H PO SCH (09:05)
[2020-03-16] MEDS: Insulin DETEMIR 100 UNIT/ML X5UNITS SQ SCH (09:11)
[2020-03-16] MEDS: amLODIPine 5 MG TABLET PO SCH (09:11)
[2020-03-16] MEDS: polyethylene glycoL 3350 17 GM POWD.PACK PO SCH (09:17)
[2020-03-16] MEDS: Magnesium Oxide 400 MG TABLET PO SCH (21:17)
[2020-03-17 05:39] LABS: Hematocrit 40.2 % (37.5-50.1); Hemoglobin 12.9 g/dL (12.9-16.9); Mean Corpuscular HGB Conc 32.1 g/dL (31.6-35.5); Mean Corpuscular Hemoglobin 28.5 pg (28.0-33.3); Mean Corpuscular Volume 88.7 fL (83.0-100.0); Mean Platelet Volume 10.5 fL (9.4-12.4); Platelet Count 189 K/mcL (140-400); Red Blood Count 4.53 M/mcL (4.19-5.50); Red Cell Distribution Width 13.8 % (11.5-14.5); White Blood Count 8.8 K/mcL (4.3-11.1)
[2020-03-17 05:49] LABS: Calcium 8.7 mg/dL (8.6-10.3); Magnesium 1.7 mg/dL (1.6-2.6)
[2020-03-17] MEDS: *HR* Heparin 5,000 UNIT/ML VIAL SQ SCH (06:13)
[2020-03-17 06:54] VITALS: BP 160/72
[2020-03-17] MEDS: Insulin LISPRO 300 UNITS/3 ML VIAL SQ SCH (08:00)
[2020-03-17] MEDS: polyethylene glycoL 3350 17 GM POWD.PACK PO SCH (08:00)
[2020-03-17] MEDS: Magnesium Oxide 400 MG TABLET PO SCH (09:02)
[2020-03-17] MEDS: amLODIPine 5 MG TABLET PO SCH (09:03)
[2020-03-17] MEDS: Metoprolol XL (24 HR) Succ 25 MG TAB.ER.24H PO SCH (09:03)
[2020-03-17] MEDS: Insulin DETEMIR 100 UNIT/ML X5UNITS SQ SCH (09:07)
== END 2020-03-17 09:51 | disposition home or self-care (01) | DRG 291 ==
LOC: EMEROOARM 00:18 → 3BNU 00:18 → SUATTDRO 03:49 → 3BNU 04:09
PROVIDERS: ADMIT Family Medicine; ATTEND Internal Medicine

== ENCOUNTER 2021-03-17 20:31 | Inpatient (IN) ==
[2021-03-17 21:29] LABS: Basophils # 0.1 K/mcL (0.0-0.2); Basophils % 0.3 %; Eosinophils # 0.1 K/mcL (0.0-0.6); Eosinophils % 0.4 %; Hemoglobin 14.4 g/dL (12.9-16.9); Immature Granulocytes % 0.7 % (0-4); Lymphocytes # 1.2 K/mcL (0.6-4.6); Lymphocytes % 5.7 %; Mean Corpuscular HGB Conc 32.7 g/dL (31.6-35.5); Mean Corpuscular Hemoglobin 29.1 pg (28.0-33.3); Mean Corpuscular Volume 89.1 fL (83.0-100.0); Mean Platelet Volume 9.5 fL (9.4-12.4); Monocytes # 1.3 K/mcL (0.0-1.3); Monocytes % 6.5 %; Neutrophils # 17.7 K/mcL (1.6-8.9); Platelet Count 185 K/mcL (140-400); Red Blood Count 4.94 M/mcL (4.19-5.50); Red Cell Distribution Width 13.5 % (11.5-14.5); Segmented Neutrophils % 86.4 %; White Blood Count 20.5 K/mcL (4.3-11.1)
[2021-03-17 21:50] LABS: BUN/Creatinine Ratio 17 (6-26); Blood Urea Nitrogen 45 mg/dL (8-23); Calcium 9.7 mg/dL (8.6-10.3); Carbon Dioxide 21 mEq/L (23-29); Chloride 103 mEq/L (98-107); Glucose 171 mg/dL (70-105); Osmolality,Calculated 300 (280-300); Potassium 4.2 mEq/L (3.5-5.1); Sodium 137 mEq/L (136-145); eGFR For African Americans 28 (> 60); eGFR For Non-African Americans 23 (> 60)
[2021-03-17 21:51] LABS: Troponin I < 0.03 ng/mL (< 0.04)
[2021-03-17] MEDS ORDERED: cefTRIAXone 1,000 MG in 0.9 % Sodium Chloride Mini Bag 100 ML IVPB ONE (23:16)
[2021-03-17] MEDS ORDERED: Doxycycline 100 MG in 0.9 % Sodium Chloride Mini Bag 100 ML IVPB ONE (23:20)
[2021-03-18] MEDS ORDERED: Naloxone 0.4 MG/ML INJ IVP PRN (01:14)
[2021-03-18] MEDS ORDERED: Acetaminophen 325 MG TABLET PO PRN (01:14)
[2021-03-18] MEDS ORDERED: Ondansetron 4 MG/2 ML VIAL IVP PRN (01:14)
[2021-03-18] MEDS ORDERED: Ipratropium/Albuterol Neb 3 ML IH PRN (01:16)
[2021-03-18] MEDS ORDERED: D5% in Water 1,000 ML IVC PRN (01:16)
[2021-03-18] MEDS ORDERED: Dextrose Gel 15 GM/37.5 ML TUBE PO PRN ×2 (01:16)
[2021-03-18] MEDS ORDERED: *HR* Dextrose 50 % in Water (Vial) 50 ML VIAL IVP PRN (01:16)
[2021-03-18] MEDS: Insulin LISPRO 300 UNITS/3 ML VIAL SUBQ SCH ×5 (02:09→20:50)
[2021-03-18] MEDS: 0.9 % Sodium Chloride 1,000 ML IVC SCH ×2 (02:16→11:34)
[2021-03-18 03:38] LABS: Basophils # 0.1 K/mcL (0.0-0.2); Basophils % 0.2 %; Hematocrit 36.9 % (37.5-50.1); Immature Granulocytes % 0.7 % (0-4); Lymphocytes # 2.7 K/mcL (0.6-4.6); Lymphocytes % 11.9 %; Mean Corpuscular HGB Conc 33.3 g/dL (31.6-35.5); Mean Corpuscular Hemoglobin 29.6 pg (28.0-33.3); Mean Corpuscular Volume 88.7 fL (83.0-100.0); Monocytes # 1.4 K/mcL (0.0-1.3); Neutrophils # 18.3 K/mcL (1.6-8.9); Platelet Count 167 K/mcL (140-400); Red Blood Count 4.16 M/mcL (4.19-5.50); Red Cell Distribution Width 13.4 % (11.5-14.5); Segmented Neutrophils % 81.2 %; White Blood Count 22.6 K/mcL (4.3-11.1)
[2021-03-18 03:40] LABS: Hemoglobin 12.3 g/dL (12.9-16.9)
[2021-03-18 04:02] LABS: Calcium 8.6 mg/dL (8.6-10.3); Magnesium 1.4 mg/dL (1.6-2.6); Potassium 3.8 mEq/L (3.5-5.1)
[2021-03-18] MEDS: cefTRIAXone 1,000 MG in 0.9 % Sodium Chloride Mini Bag 100 ML IVPB SCH (08:06)
[2021-03-18] MEDS: Doxycycline 100 MG in 0.9 % Sodium Chloride Mini Bag 100 ML IVPB SCH (11:34)
[2021-03-18] MEDS: predniSONE 20 MG TABLET PO SCH (11:34)
[2021-03-18] MEDS: Ipratropium/Albuterol Neb 3 ML IH SCH ×2 (16:03→21:36)
[2021-03-18] MEDS: carvediloL 6.25 MG TABLET PO SCH (17:22)
[2021-03-18] MEDS ORDERED: Insulin DETEMIR 100 UNIT/ML X5UNITS SUBQ SCH (21:00)
[2021-03-19] MEDS: Doxycycline 100 MG in 0.9 % Sodium Chloride Mini Bag 100 ML IVPB SCH ×3 (00:01→22:57)
[2021-03-19] MEDS: hydrALAZINE 25 MG TABLET PO SCH ×4 (00:01→22:57)
[2021-03-19 02:55] LABS: Basophils % 0.2 %; Hematocrit 35.4 % (37.5-50.1); Hemoglobin 11.7 g/dL (12.9-16.9); Immature Granulocytes % 0.9 % (0-4); Lymphocytes # 2.2 K/mcL (0.6-4.6); Lymphocytes % 15.6 %; Mean Corpuscular HGB Conc 33.1 g/dL (31.6-35.5); Mean Corpuscular Hemoglobin 29.9 pg (28.0-33.3); Mean Corpuscular Volume 90.5 fL (83.0-100.0); Mean Platelet Volume 10.1 fL (9.4-12.4); Monocytes # 0.7 K/mcL (0.0-1.3); Monocytes % 4.7 %; Neutrophils # 11.1 K/mcL (1.6-8.9); Platelet Count 154 K/mcL (140-400); Red Blood Count 3.91 M/mcL (4.19-5.50); Red Cell Distribution Width 13.5 % (11.5-14.5); Segmented Neutrophils % 78.6 %; White Blood Count 14.1 K/mcL (4.3-11.1)
[2021-03-19 03:10] LABS: Calcium 8.4 mg/dL (8.6-10.3); Potassium 4.4 mEq/L (3.5-5.1)
[2021-03-19] MEDS: Ipratropium/Albuterol Neb 3 ML IH SCH ×4 (03:32→22:14)
[2021-03-19] MEDS: carvediloL 6.25 MG TABLET PO SCH ×2 (07:57→17:17)
[2021-03-19] MEDS: Insulin LISPRO 300 UNITS/3 ML VIAL SUBQ SCH ×4 (07:58→20:14)
[2021-03-19] MEDS: amLODIPine 5 MG TABLET PO SCH (10:58)
[2021-03-19] MEDS: predniSONE 20 MG TABLET PO SCH (10:58)
[2021-03-19] MEDS: cefTRIAXone 1,000 MG in 0.9 % Sodium Chloride Mini Bag 100 ML IVPB SCH (10:59)
[2021-03-19] MEDS ORDERED: Insulin DETEMIR 100 UNIT/ML X5UNITS SUBQ SCH (21:00)
[2021-03-20] MEDS: Ipratropium/Albuterol Neb 3 ML IH SCH ×3 (03:58→15:46)
[2021-03-20 05:42] LABS: Basophils % 0.2 %; Hematocrit 36.5 % (37.5-50.1); Hemoglobin 12.1 g/dL (12.9-16.9); Immature Granulocytes % 2.1 % (0-4); Lymphocytes # 1.8 K/mcL (0.6-4.6); Mean Corpuscular HGB Conc 33.2 g/dL (31.6-35.5); Mean Corpuscular Hemoglobin 29.4 pg (28.0-33.3); Mean Corpuscular Volume 88.6 fL (83.0-100.0); Mean Platelet Volume 10.5 fL (9.4-12.4); Monocytes # 0.6 K/mcL (0.0-1.3); Monocytes % 4.4 %; Platelet Count 182 K/mcL (140-400); Red Blood Count 4.12 M/mcL (4.19-5.50); Red Cell Distribution Width 13.4 % (11.5-14.5); Segmented Neutrophils % 79.3 %; White Blood Count 12.6 K/mcL (4.3-11.1)
[2021-03-20 06:08] LABS: Calcium 8.7 mg/dL (8.6-10.3); Potassium 4.5 mEq/L (3.5-5.1)
[2021-03-20] MEDS: carvediloL 6.25 MG TABLET PO SCH (07:40)
[2021-03-20] MEDS: hydrALAZINE 25 MG TABLET PO SCH (07:40)
[2021-03-20] MEDS: amLODIPine 5 MG TABLET PO SCH (07:40)
[2021-03-20] MEDS: predniSONE 20 MG TABLET PO SCH (07:40)
[2021-03-20] MEDS: cefTRIAXone 1,000 MG in 0.9 % Sodium Chloride Mini Bag 100 ML IVPB SCH (07:40)
[2021-03-20] MEDS: Insulin LISPRO 300 UNITS/3 ML VIAL SUBQ SCH ×2 (07:43→13:48)
[2021-03-20 10:16] VITALS: BP 141/74
[2021-03-20] MEDS ORDERED: Insulin LISPRO 300 UNITS/3 ML VIAL SUBQ SCH ×2 (12:00→18:00)
[2021-03-20] MEDS ORDERED: Doxycycline 100 MG CAPSULE PO SCH (18:00)
[2021-03-21] MEDS ORDERED: Insulin LISPRO 300 UNITS/3 ML VIAL SUBQ SCH (07:00)
[2021-03-21] MEDS ORDERED: Cefdinir 300 MG CAPSULE PO SCH (09:00)
== END 2021-03-20 14:44 | disposition home or self-care (01) | DRG 871 ==
LOC: 2ANU 20:31 → EMEROOARM 20:31 → SUATTDRO 23:56 → 2ANU 03-18 00:37
PROVIDERS: ADMIT Student in an Organized Health Care Education/Training Program; ATTEND General Practice

== ENCOUNTER 2021-10-10 00:08 | Inpatient (IN) ==
[2021-10-10] MEDS ORDERED: Ipratropium/Albuterol Neb 3 ML IH ONE (00:45)
[2021-10-10] MEDS ORDERED: Budesonide Neb 0.5 MG/2 ML IH ONE (00:45)
[2021-10-10 01:25] LABS: Basophils % 0.4 %; Hematocrit 41.8 % (37.5-50.1); Hemoglobin 13.6 g/dL (12.9-16.9); Immature Granulocytes % 0.4 % (0-4); Lymphocytes # 1.4 K/mcL (0.6-4.6); Lymphocytes % 16.7 %; Mean Corpuscular HGB Conc 32.5 g/dL (31.6-35.5); Mean Corpuscular Hemoglobin 29.2 pg (28.0-33.3); Mean Corpuscular Volume 89.9 fL (83.0-100.0); Monocytes # 1.4 K/mcL (0.0-1.3); Monocytes % 17.5 %; Neutrophils # 5.3 K/mcL (1.6-8.9); Platelet Count 146 K/mcL (140-400); Red Blood Count 4.65 M/mcL (4.19-5.50); Red Cell Distribution Width 14.2 % (11.5-14.5); White Blood Count 8.1 K/mcL (4.3-11.1)
[2021-10-10 01:47] LABS: Albumin/Globulin Ratio 1.3 (1.1-2.2); Calcium 8.9 mg/dL (8.6-10.3); Globulin 3.1 g/dL (2.4-3.5); Potassium 4.2 mEq/L (3.5-5.1); Total Protein 7.1 g/dL (6.4-8.9)
[2021-10-10 01:48] LABS: Troponin I 0.06 ng/mL (< 0.04)
[2021-10-10 02:03] LABS: Adenovirus Not Detected (Not Detect); Coronavirus 229E Not Detected (Not Detect); Coronavirus HKU1 Not Detected (Not Detect); Coronavirus NL63 Not Detected (Not Detect); Coronavirus OC43 Not Detected (Not Detect)
[2021-10-10 02:05] LABS: Bordetella Pertussis Not Detected (Not Detect); Chlamydophila pneumoniae Not Detected (Not Detect); Human Metapneumovirus Not Detected (Not Detect); Human Rhinovirus/Enterovirus Not Detected (Not Detect); Influenza A Subtype 2009 H1 Not Detected (Not Detect); Influenza B Not Detected (Not Detect); Mycoplasma pneumoniae Not Detected (Not Detect); Parainfluenza Virus 1 Not Detected (Not Detect); Parainfluenza Virus 2 Not Detected (Not Detect); Parainfluenza Virus 3 Not Detected (Not Detect); Parainfluenza Virus 4 Not Detected (Not Detect); Respiratory Syncytial Virus Not Detected (Not Detect); SARS-CoV-2 DETECTED (Not Detect)
[2021-10-10 02:36] LABS: Bilirubin,Urine Negative (Negative); Blood,Urine Negative (Negative); Clarity,Urine Clear (Clear); Color,Urine Yellow (Yellow); Glucose,Urine (UA) 100 mg/dL (Normal); Ketones,Urine Negative (Negative); Leukocyte Esterase,Urine Negative (Negative); Nitrite,Urine Negative (Negative); PH,Urine 5.5 pH Units (5.0-8.0); Protein,Urine >=300 mg/dL (Neg-Trace); Specific Gravity,Urine >= 1.030 (1.010-1.025); Urobilinogen,Urine Normal (Normal)
[2021-10-10 02:37] LABS: Mucus,Urine Few per lpf (None-Few); RBC,Urine 0-3 per hpf (0-3); Squamous Epithelial Cell,Urine Few per hpf (None-Few); WBC,Urine 0-3 per hpf (0-3)
[2021-10-10] MEDS ORDERED: Melatonin 3 MG TABLET PO PRN (05:02)
[2021-10-10] MEDS ORDERED: *HR* Promethazine 25 MG/ML VIAL IM PRN (05:02)
[2021-10-10] MEDS ORDERED: Acetaminophen 325 MG TABLET PO PRN (05:02)
[2021-10-10] MEDS ORDERED: Naloxone 0.4 MG/ML INJ IVP PRN (05:02)
[2021-10-10] MEDS ORDERED: Saline Nasal Spray 44 ML BOTTLE NS PRN (05:04)
[2021-10-10] MEDS ORDERED: Chloraseptic Spray 177 ML BOTTLE MM PRN (05:04)
[2021-10-10] MEDS ORDERED: Saliva Stimulant 44.3ml BOTTLE PO PRN (05:04)
[2021-10-10] MEDS ORDERED: Artificial Tears SOLN 15 ML BOTTLE BOTH EYES PRN (05:04)
[2021-10-10] MEDS ORDERED: Dextrose Gel 15 GM/37.5 ML TUBE PO PRN ×2 (06:14)
[2021-10-10] MEDS ORDERED: *HR* Dextrose 50 % in Water (Syg) 50 ML SYRINGE IVP PRN (06:14)
[2021-10-10] MEDS ORDERED: D5% in Water 1,000 ML IVC PRN (06:14)
[2021-10-10] MEDS ORDERED: Aspirin 325 MG TABLET PO ONE (06:17)
[2021-10-10] MEDS ORDERED: Nitroglycerin 0.4 MG TAB.SUBL SL PRN (06:19)
[2021-10-10 07:24] LABS: Lactate Dehydrogenase 194 Units/L (140-271)
[2021-10-10 07:43] LABS: Ferritin 144 ng/mL (20-250)
[2021-10-10] MEDS: Insulin LISPRO 300 UNITS/3 ML VIAL SUBQ SCH ×4 (09:08→20:23)
[2021-10-10] MEDS: Cholecalciferol (D-3) 1,000 UNIT (25MCG) TABLET PO SCH (09:09)
[2021-10-10] MEDS: Chlorhexidine Rinse 15 ML MOUTHWASH MM SCH ×2 (09:09→20:23)
[2021-10-10] MEDS: Multivit/Ca/Min/Fe/FA 1 TAB TABLET PO SCH (09:09)
[2021-10-10] MEDS: carvediloL 6.25 MG TABLET PO SCH ×2 (09:09→17:00)
[2021-10-10] MEDS: Ipratropium 1 PUFF INHALER IH SCH ×3 (09:10→20:08)
[2021-10-10] MEDS: Budesonide/Formoterol 160/4.5 1 PUFF INH IH SCH ×2 (09:14→20:08)
[2021-10-10 09:24] LABS: C-Reactive Protein 29 mg/L (Less than 10)
[2021-10-10] MEDS: Insulin DETEMIR 100 UNIT/ML X5UNITS SUBQ SCH (09:26)
[2021-10-10 10:20] LABS: Estimated Average Glucose 189 mg/dl; Hemoglobin A1C 8.2 %
[2021-10-10] MEDS: *HR* Heparin 5,000 UNIT/ML VIAL SQ SCH ×2 (15:14→20:23)
[2021-10-11] MEDS: Ipratropium 1 PUFF INHALER IH SCH ×4 (03:58→22:03)
[2021-10-11] MEDS: *HR* Heparin 5,000 UNIT/ML VIAL SQ SCH ×3 (05:42→21:02)
[2021-10-11 07:18] LABS: Hematocrit 42.9 % (37.5-50.1); Mean Corpuscular HGB Conc 32.6 g/dL (31.6-35.5); Mean Corpuscular Hemoglobin 28.9 pg (28.0-33.3); Mean Corpuscular Volume 88.6 fL (83.0-100.0); Mean Platelet Volume 10.3 fL (9.4-12.4); Platelet Count 160 K/mcL (140-400); Red Blood Count 4.84 M/mcL (4.19-5.50)
[2021-10-11 07:24] LABS: Calcium 8.5 mg/dL (8.6-10.3); Chol/HDL Ratio 3.3 (0-4.9); Magnesium 1.7 mg/dL (1.6-2.6)
[2021-10-11 07:30] LABS: White Blood Count 13.6 K/mcL (4.3-11.1)
[2021-10-11 07:32] LABS: INR 1.1; Prothrombin Time 12.3 Seconds (9.4-12.1)
[2021-10-11] MEDS: Chlorhexidine Rinse 15 ML MOUTHWASH MM SCH ×2 (09:45→21:02)
[2021-10-11] MEDS: Insulin LISPRO 300 UNITS/3 ML VIAL SUBQ SCH ×4 (09:45→21:02)
[2021-10-11] MEDS: Cholecalciferol (D-3) 1,000 UNIT (25MCG) TABLET PO SCH (09:46)
[2021-10-11] MEDS: Multivit/Ca/Min/Fe/FA 1 TAB TABLET PO SCH (09:46)
[2021-10-11] MEDS: carvediloL 6.25 MG TABLET PO SCH ×2 (09:46→17:03)
[2021-10-11] MEDS: Aspirin 81 MG TAB.CHEW PO SCH (09:46)
[2021-10-11] MEDS: Insulin DETEMIR 100 UNIT/ML X5UNITS SUBQ SCH (09:46)
[2021-10-11] MEDS: Budesonide/Formoterol 160/4.5 1 PUFF INH IH SCH ×2 (10:48→22:03)
[2021-10-11] MEDS: hydrALAZINE 25 MG TABLET PO SCH ×2 (17:04→23:29)
[2021-10-12] MEDS: Ipratropium 1 PUFF INHALER IH SCH ×4 (03:57→20:29)
[2021-10-12] MEDS: *HR* Heparin 5,000 UNIT/ML VIAL SQ SCH ×3 (05:46→21:50)
[2021-10-12 06:06] LABS: Basophils % 0.1 %; Hemoglobin 12.8 g/dL (12.9-16.9); Immature Granulocytes % 0.8 % (0-4); Lymphocytes # 2.4 K/mcL (0.6-4.6); Lymphocytes % 17.2 %; Mean Corpuscular HGB Conc 32.8 g/dL (31.6-35.5); Mean Corpuscular Hemoglobin 29.3 pg (28.0-33.3); Mean Corpuscular Volume 89.2 fL (83.0-100.0); Mean Platelet Volume 10.7 fL (9.4-12.4); Monocytes # 1.2 K/mcL (0.0-1.3); Monocytes % 8.4 %; Neutrophils # 10.3 K/mcL (1.6-8.9); Platelet Count 144 K/mcL (140-400); Red Blood Count 4.37 M/mcL (4.19-5.50); Red Cell Distribution Width 14.2 % (11.5-14.5); Segmented Neutrophils % 73.5 %
[2021-10-12 06:21] LABS: Albumin 3.4 g/dL (3.5-5.7); Albumin/Globulin Ratio 1.2 (1.1-2.2); Bilirubin,Total 0.6 mg/dL (0.3-1.0); Calcium 8.4 mg/dL (8.6-10.3); Globulin 2.9 g/dL (2.4-3.5); Potassium 4.2 mEq/L (3.5-5.1); Total Protein 6.3 g/dL (6.4-8.9)
[2021-10-12] MEDS: Aspirin 81 MG TAB.CHEW PO SCH (07:52)
[2021-10-12] MEDS: carvediloL 6.25 MG TABLET PO SCH ×2 (07:52→17:02)
[2021-10-12] MEDS: amLODIPine 5 MG TABLET PO SCH (07:52)
[2021-10-12] MEDS: Chlorhexidine Rinse 15 ML MOUTHWASH MM SCH ×2 (07:53→21:48)
[2021-10-12] MEDS ORDERED: 0.9 % Sodium Chloride 500 ML IVC ONE (07:54)
[2021-10-12] MEDS: Multivit/Ca/Min/Fe/FA 1 TAB TABLET PO SCH (07:54)
[2021-10-12] MEDS: Cholecalciferol (D-3) 1,000 UNIT (25MCG) TABLET PO SCH (07:54)
[2021-10-12] MEDS: Insulin LISPRO 300 UNITS/3 ML VIAL SUBQ SCH ×4 (07:55→21:50)
[2021-10-12] MEDS: hydrALAZINE 25 MG TABLET PO SCH (07:56)
[2021-10-12] MEDS: Budesonide/Formoterol 160/4.5 1 PUFF INH IH SCH ×2 (10:50→20:29)
[2021-10-12] MEDS: Insulin DETEMIR 100 UNIT/ML X5UNITS SUBQ SCH (11:23)
[2021-10-12] MEDS ORDERED: 0.9 % Sodium Chloride 1,000 ML IVC SCH (13:30)
[2021-10-13] MEDS: Ipratropium 1 PUFF INHALER IH SCH ×4 (03:46→21:27)
[2021-10-13 05:08] LABS: Basophils % 0.1 %; Immature Granulocytes % 0.4 % (0-4); Red Cell Distribution Width 14.1 % (11.5-14.5)
[2021-10-13 05:10] LABS: Hematocrit 39.1 % (37.5-50.1); Hemoglobin 12.7 g/dL (12.9-16.9); Immature Platelets 3.2 % (1.1-6.1); Lymphocytes # 1.5 K/mcL (0.6-4.6); Lymphocytes % 16.9 %; Mean Corpuscular HGB Conc 32.5 g/dL (31.6-35.5); Mean Corpuscular Volume 89.3 fL (83.0-100.0); Mean Platelet Volume 10.4 fL (9.4-12.4); Monocytes # 0.9 K/mcL (0.0-1.3); Monocytes % 9.9 %; Neutrophils # 6.5 K/mcL (1.6-8.9); Platelet Count 126 K/mcL (140-400); Red Blood Count 4.38 M/mcL (4.19-5.50); Segmented Neutrophils % 72.7 %
[2021-10-13 05:15] LABS: Albumin 3.4 g/dL (3.5-5.7); Albumin/Globulin Ratio 1.1 (1.1-2.2); Bilirubin,Total 0.6 mg/dL (0.3-1.0); Calcium 8.2 mg/dL (8.6-10.3); Globulin 3.1 g/dL (2.4-3.5); Potassium 4.5 mEq/L (3.5-5.1); Total Protein 6.5 g/dL (6.4-8.9)
[2021-10-13] MEDS: *HR* Heparin 5,000 UNIT/ML VIAL SQ SCH ×3 (06:06→20:54)
[2021-10-13] MEDS: amLODIPine 5 MG TABLET PO SCH (07:29)
[2021-10-13] MEDS: Insulin LISPRO 300 UNITS/3 ML VIAL SUBQ SCH ×4 (07:29→20:55)
[2021-10-13] MEDS: Aspirin 81 MG TAB.CHEW PO SCH (07:30)
[2021-10-13] MEDS: Chlorhexidine Rinse 15 ML MOUTHWASH MM SCH (07:30)
[2021-10-13] MEDS: Multivit/Ca/Min/Fe/FA 1 TAB TABLET PO SCH (07:30)
[2021-10-13] MEDS: Insulin DETEMIR 100 UNIT/ML X5UNITS SUBQ SCH (07:30)
[2021-10-13] MEDS: carvediloL 6.25 MG TABLET PO SCH ×2 (07:30→16:40)
[2021-10-13] MEDS: Cholecalciferol (D-3) 1,000 UNIT (25MCG) TABLET PO SCH (07:30)
[2021-10-13] MEDS: Budesonide/Formoterol 160/4.5 1 PUFF INH IH SCH ×3 (10:05→21:35)
[2021-10-13] MEDS ORDERED: 0.9 % Sodium Chloride 250 ML IVC PRN (10:13)
[2021-10-13] MEDS ORDERED: 0.9 % Sodium Chloride 1,000 ML PRIME SCH (10:15)
[2021-10-13 13:05] LABS: Hepatitis B Surface Antigen Nonreactive (Nonreactive)
[2021-10-13] MEDS ORDERED: *HR* Heparin 5,000 UNIT/ML VIAL ONE (13:57)
[2021-10-13] MEDS: cefTRIAXone 1,000 MG in Water for inj. (sterile) 10 ML IVP SCH (14:21)
[2021-10-13] MEDS ORDERED: *HR* Heparin 10,000 UNIT/10 ML VIAL IV PRN (15:05)
[2021-10-13] MEDS ORDERED: hydrALAZINE 25 MG TABLET PO SCH (16:00)
[2021-10-13] MEDS ORDERED: Doxycycline 100 MG in 0.9 % Sodium Chloride Mini Bag 100 ML IVPB SCH (18:00)
[2021-10-13] MEDS: Doxycycline 100 MG in 0.9 % Sodium Chloride Mini Bag 100 ML IVPB SCH (23:03)
[2021-10-13 23:17] LABS: Calcium 8.4 mg/dL (8.6-10.3)
[2021-10-13 23:18] LABS: Calcium 8.4 mg/dL (8.6-10.3); Potassium 3.9 mEq/L (3.5-5.1)
[2021-10-14 02:57] LABS: Hemoglobin 11.9 g/dL (12.9-16.9); Immature Granulocytes % 0.5 % (0-4); Lymphocytes # 1.2 K/mcL (0.6-4.6); Lymphocytes % 11.8 %; Mean Corpuscular HGB Conc 32.2 g/dL (31.6-35.5); Mean Corpuscular Hemoglobin 28.5 pg (28.0-33.3); Mean Corpuscular Volume 88.5 fL (83.0-100.0); Mean Platelet Volume 10.9 fL (9.4-12.4); Monocytes # 0.7 K/mcL (0.0-1.3); Neutrophils # 8.2 K/mcL (1.6-8.9); Platelet Count 121 K/mcL (140-400); Red Blood Count 4.18 M/mcL (4.19-5.50); Red Cell Distribution Width 14.2 % (11.5-14.5); Segmented Neutrophils % 80.7 %; White Blood Count 10.2 K/mcL (4.3-11.1)
[2021-10-14 03:17] LABS: Albumin 3.3 g/dL (3.5-5.7); Albumin/Globulin Ratio 1.1 (1.1-2.2); Bilirubin,Total 0.5 mg/dL (0.3-1.0); Calcium 8.2 mg/dL (8.6-10.3); Potassium 4.2 mEq/L (3.5-5.1); Total Protein 6.3 g/dL (6.4-8.9)
[2021-10-14] MEDS: Ipratropium 1 PUFF INHALER IH SCH ×5 (03:29→21:00)
[2021-10-14] MEDS ORDERED: 0.9 % Sodium Chloride 250 ML IVC PRN (07:15)
[2021-10-14] MEDS: Budesonide/Formoterol 160/4.5 1 PUFF INH IH SCH ×2 (08:06→21:01)
[2021-10-14] MEDS: *HR* Heparin 5,000 UNIT/ML VIAL SQ SCH ×3 (08:33→22:35)
[2021-10-14] MEDS: Insulin LISPRO 300 UNITS/3 ML VIAL SUBQ SCH ×4 (08:41→20:07)
[2021-10-14] MEDS: Insulin DETEMIR 100 UNIT/ML X5UNITS SUBQ SCH (08:42)
[2021-10-14] MEDS: cefTRIAXone 1,000 MG in Water for inj. (sterile) 10 ML IVP SCH (08:44)
[2021-10-14] MEDS: Aspirin 81 MG TAB.CHEW PO SCH (08:46)
[2021-10-14] MEDS: Cholecalciferol (D-3) 1,000 UNIT (25MCG) TABLET PO SCH (08:47)
[2021-10-14] MEDS: Multivit/Ca/Min/Fe/FA 1 TAB TABLET PO SCH (08:47)
[2021-10-14 09:08] LABS: D-Dimer 609 ng/mLFEU (0-500)
[2021-10-14 09:12] LABS: Fibrinogen 562 mg/dL (169-393)
[2021-10-14 09:19] LABS: Lactate Dehydrogenase 379 Units/L (140-271)
[2021-10-14 09:37] LABS: Ferritin 1101 ng/mL (20-250)
[2021-10-14 09:50] LABS: C-Reactive Protein 165 mg/L (Less than 10)
[2021-10-14] MEDS: carvediloL 6.25 MG TABLET PO SCH ×2 (11:52→16:51)
[2021-10-14] MEDS: Nystatin SUSP 5 ML UD.LIQ PO SCH ×3 (12:04→20:04)
[2021-10-14] MEDS: Furosemide 40 MG/4 ML VIAL IVP SCH (12:05)
[2021-10-14] MEDS: Doxycycline 100 MG in 0.9 % Sodium Chloride Mini Bag 100 ML IVPB SCH (12:08)
[2021-10-14] MEDS ORDERED: *HR* Heparin 10,000 UNIT/10 ML VIAL IV PRN (12:26)
[2021-10-14 14:24] LABS: Amorphous Sediment,Urine Few per hpf (None-Few); Bilirubin,Urine Negative (Negative); Blood,Urine Trace (Negative); Clarity,Urine Turbid (Clear); Color,Urine Yellow (Yellow); Glucose,Urine (UA) 150 mg/dL (Normal); Ketones,Urine Negative (Negative); Leukocyte Esterase,Urine Negative (Negative); Mucus,Urine Few per lpf (None-Few); Nitrite,Urine Negative (Negative); Protein,Urine 200 mg/dL (Neg-Trace); Renal Epithelial Cells,Urine Few per hpf (None-Few); Specific Gravity,Urine 1.016 (1.010-1.025); Transitional Epi Cells,Urine Few per hpf (None-Few); Urobilinogen,Urine Normal (Normal)
[2021-10-14] MEDS: amLODIPine 5 MG TABLET PO SCH (16:56)
[2021-10-14 23:43] LABS: Sodium, Urine 51.2 mEq/L
[2021-10-15 00:03] LABS: Protein/Creatinine Ratio,Urine 2.07 mg/mg (0.00-0.20)
[2021-10-15] MEDS: Ipratropium 1 PUFF INHALER IH SCH ×4 (04:03→20:36)
[2021-10-15] MEDS: *HR* Heparin 5,000 UNIT/ML VIAL SQ SCH ×3 (05:29→23:44)
[2021-10-15] MEDS: Budesonide/Formoterol 160/4.5 1 PUFF INH IH SCH ×2 (07:14→20:36)
[2021-10-15] MEDS: Insulin LISPRO 300 UNITS/3 ML VIAL SUBQ SCH ×3 (08:43→19:56)
[2021-10-15] MEDS: Insulin DETEMIR 100 UNIT/ML X5UNITS SUBQ SCH (08:46)
[2021-10-15] MEDS: Aspirin 81 MG TAB.CHEW PO SCH (08:47)
[2021-10-15] MEDS: Multivit/Ca/Min/Fe/FA 1 TAB TABLET PO SCH (08:48)
[2021-10-15] MEDS: Nystatin SUSP 5 ML UD.LIQ PO SCH ×3 (08:48→19:56)
[2021-10-15] MEDS: Cholecalciferol (D-3) 1,000 UNIT (25MCG) TABLET PO SCH (08:48)
[2021-10-15 08:52] LABS: Hematocrit 37.7 % (37.5-50.1); Hemoglobin 12.6 g/dL (12.9-16.9); Immature Granulocytes % 0.5 % (0-4); Lymphocytes # 1.3 K/mcL (0.6-4.6); Lymphocytes % 12.8 %; Mean Corpuscular HGB Conc 33.4 g/dL (31.6-35.5); Mean Corpuscular Hemoglobin 29.9 pg (28.0-33.3); Mean Corpuscular Volume 89.3 fL (83.0-100.0); Monocytes # 0.8 K/mcL (0.0-1.3); Monocytes % 8.1 %; Platelet Count 129 K/mcL (140-400); Red Blood Count 4.22 M/mcL (4.19-5.50); Red Cell Distribution Width 14.1 % (11.5-14.5); Segmented Neutrophils % 78.6 %; White Blood Count 10.2 K/mcL (4.3-11.1)
[2021-10-15] MEDS: cefTRIAXone 1,000 MG in Water for inj. (sterile) 10 ML IVP SCH (08:53)
[2021-10-15 09:11] LABS: D-Dimer 643 ng/mLFEU (0-500); Fibrinogen 562 mg/dL (169-393)
[2021-10-15 09:13] LABS: Alanine Aminotransferase 27 Units/L (7-52); Albumin 3.4 g/dL (3.5-5.7); Alkaline Phosphatase 65 Units/L (34-104); Aspartate Amino Transferase 41 Units/L (13-39); BUN/Creatinine Ratio 15 (6-26); Bilirubin,Total 0.7 mg/dL (0.3-1.0); Blood Urea Nitrogen 66 mg/dL (8-23); C-Reactive Protein 139 mg/L (Less than 10); Calcium 8.2 mg/dL (8.6-10.3); Carbon Dioxide 24 mEq/L (23-29); Chloride 97 mEq/L (98-107); Globulin 3.5 g/dL (2.4-3.5); Glucose 330 mg/dL (70-105); Lactate Dehydrogenase 484 Units/L (140-271); Osmolality,Calculated 312 (280-300); Potassium 4.3 mEq/L (3.5-5.1); Sodium 135 mEq/L (136-145); Total Protein 6.9 g/dL (6.4-8.9); eGFR For African Americans 16 (> 60); eGFR For Non-African Americans 13 (> 60)
[2021-10-15 09:43] LABS: Ferritin > 1500 ng/mL (20-250)
[2021-10-15] MEDS ORDERED: Saline Nasal Spray 44 ML BOTTLE NS PRN (10:16)
[2021-10-15] MEDS: Furosemide 40 MG/4 ML VIAL IVP SCH (10:24)
[2021-10-15] MEDS ORDERED: 0.9 % Sodium Chloride 250 ML IVC PRN (11:03)
[2021-10-15] MEDS ORDERED: *HR* Heparin 10,000 UNIT/10 ML VIAL IV PRN (11:12)
[2021-10-15] MEDS ORDERED: *HR* LORazepam 2 MG/ML VIAL IVP PRN (12:09)
[2021-10-15] MEDS ORDERED: *HR* Heparin 5,000 UNIT/ML VIAL ONE (12:47)
[2021-10-15] MEDS: carvediloL 6.25 MG TABLET PO SCH ×2 (14:54→19:56)
[2021-10-15] MEDS ORDERED: Albumin 25% 25gram/100mL 25 GM/100 ML IV.SOLN IVPB STA (17:03)
[2021-10-15] MEDS ORDERED: Morphine Sulfate 2 MG/ML SYRINGE IVP PRN (17:31)
[2021-10-15] MEDS: amLODIPine 5 MG TABLET PO SCH (19:55)
[2021-10-15] MEDS: *HR* LORazepam 2 MG/ML VIAL IVP PRN (23:37)
[2021-10-16] MEDS: Nystatin SUSP 5 ML UD.LIQ PO SCH ×5 (00:42→19:35)
[2021-10-16] MEDS: Insulin LISPRO 300 UNITS/3 ML VIAL SUBQ SCH ×5 (00:44→19:34)
[2021-10-16] MEDS: Ipratropium 1 PUFF INHALER IH SCH ×4 (03:30→20:03)
[2021-10-16 03:35] VITALS: TEMP 99.7
[2021-10-16] MEDS: OLANZapine 10 MG TAB.RAPDIS PO SCH ×2 (05:08→19:35)
[2021-10-16] MEDS: *HR* Heparin 5,000 UNIT/ML VIAL SQ SCH ×3 (05:09→19:35)
[2021-10-16] MEDS: amLODIPine 5 MG TABLET PO SCH (08:11)
[2021-10-16] MEDS: Aspirin 81 MG TAB.CHEW PO SCH (08:11)
[2021-10-16] MEDS: Cholecalciferol (D-3) 1,000 UNIT (25MCG) TABLET PO SCH (08:12)
[2021-10-16] MEDS: Multivit/Ca/Min/Fe/FA 1 TAB TABLET PO SCH (08:12)
[2021-10-16] MEDS: carvediloL 6.25 MG TABLET PO SCH ×2 (08:12→18:45)
[2021-10-16] MEDS: cefTRIAXone 1,000 MG in Water for inj. (sterile) 10 ML IVP SCH (08:16)
[2021-10-16] MEDS: Furosemide 40 MG/4 ML VIAL IVP SCH (08:17)
[2021-10-16] MEDS: Budesonide/Formoterol 160/4.5 1 PUFF INH IH SCH ×2 (08:21→20:03)
[2021-10-16] MEDS: Insulin DETEMIR 100 UNIT/ML X5UNITS SUBQ SCH (08:56)
[2021-10-16] MEDS: *HR* LORazepam 2 MG/ML VIAL IVP PRN ×3 (08:57→23:48)
[2021-10-16 12:00] VITALS: BP 120/58; PULSE 67; O2SAT 92
[2021-10-16] MEDS ORDERED: Atropine 1% Opth Drops 100 DROP/5 ML BOTTLE SL PRN (13:19)
[2021-10-16] MEDS ORDERED: Haloperidol Lactate 5 MG/ML VIAL IVP PRN (13:20)
[2021-10-16] MEDS: *HR* FentaNYL (PF) 100 MCG/2 ML VIAL IVP PRN ×5 (17:29→23:47)
[2021-10-17] MEDS: *HR* FentaNYL (PF) 100 MCG/2 ML VIAL IVP PRN ×6 (01:12→10:59)
[2021-10-17] MEDS: *HR* LORazepam 2 MG/ML VIAL IVP PRN ×5 (03:08→10:59)
[2021-10-17] MEDS: Ipratropium 1 PUFF INHALER IH SCH ×2 (03:52→07:36)
[2021-10-17] MEDS: *HR* Heparin 5,000 UNIT/ML VIAL SQ SCH ×2 (04:44→09:02)
[2021-10-17] MEDS: carvediloL 6.25 MG TABLET PO SCH (07:07)
[2021-10-17] MEDS: Furosemide 40 MG/4 ML VIAL IVP SCH (07:07)
[2021-10-17] MEDS: Aspirin 81 MG TAB.CHEW PO SCH (07:07)
[2021-10-17] MEDS: Insulin LISPRO 300 UNITS/3 ML VIAL SUBQ SCH ×2 (07:07→09:02)
[2021-10-17] MEDS: Insulin DETEMIR 100 UNIT/ML X5UNITS SUBQ SCH (07:07)
[2021-10-17] MEDS: amLODIPine 5 MG TABLET PO SCH (07:08)
[2021-10-17] MEDS: Cholecalciferol (D-3) 1,000 UNIT (25MCG) TABLET PO SCH (07:08)
[2021-10-17] MEDS: Multivit/Ca/Min/Fe/FA 1 TAB TABLET PO SCH (07:08)
[2021-10-17] MEDS: cefTRIAXone 1,000 MG in Water for inj. (sterile) 10 ML IVP SCH (07:08)
[2021-10-17] MEDS: Nystatin SUSP 5 ML UD.LIQ PO SCH ×2 (07:08→09:02)
[2021-10-17] MEDS: Budesonide/Formoterol 160/4.5 1 PUFF INH IH SCH (07:36)
== END 2021-10-17 15:29 | disposition expired | DRG 177 ==
LOC: 2NENU 00:08 → EMEROOARM 00:08 → SUATTDRO 04:43 → 2NENU 05:30 → SUATTDRO 10-11 13:41
PROVIDERS: ADMIT Family Medicine; ATTEND Family Medicine